=== PATIENT | female | born 2000 | race Hispanic/Latino ===

== ENCOUNTER → 2022-06-02 15:49 | Outpatient (CLI) | payer OTHER, SELFPAY ==
[2022-06-02 16:16] LABS: Add Manual Diff / Slide Review NO; Basophils Absolute Auto 100 /uL (0-100); Basophils Percent Auto 0.6 % (0-2); Eosinophils Absolute Auto 200 /uL (0-450); Eosinophils Percent Auto 1.7 % (2-4); Hematocrit 37.3 % (36-46); Hemoglobin 12.6 g/dL (12.0-16.0); Lymphocytes Absolute Auto 3500 /uL (1100-4500); Mean Corpuscular HGB Conc 33.7 % (30-36); Mean Corpuscular Hemoglobin 29.9 PG (26-34); Mean Corpuscular Volume 88.5 fL (80-100); Monocytes Absolute Auto 900 /uL (0-900); Monocytes Percent Auto 7.2 % (3-14); Neutrophils Absolute Auto 7800 /uL (1500-7000); Neutrophils Percent Auto 62.5 % (50-75); Platelet Count 204 X10^3/uL (150-400); Red Blood Cell Count 4.22 X10^6/uL (4.0-5.2); Red Cell Distribution Width 12.5 % (11.6-14.8); White Blood Cell Count 12.4 X10^3/uL (4.5-11.0)
[2022-06-04 07:18] LABS: RPR Screen Non Reactive (Non Reactive)
[2022-06-04 14:47] LABS: Varicella IgG Antibody 373 index (Immune >165)
[2022-06-05 17:25] LABS: Hepatitis B Surface Antigen NEGATIVE s/c (NEGATIVE); Rubella Antibody IgG 60.3 IU/mL (>15)
[2022-06-05 17:34] LABS: HIV 1 & 2 Ab/Ag 4th Gen Combo NEGATIVE (NEGATIVE); Hep C Virus Ab w/Reflex Quant NEGATIVE s/c (NEGATIVE)
== END ==
PROVIDERS: Referring Provider Obstetrics & Gynecology; Visit Provider Obstetrics & Gynecology
DX: Z34.01 Encounter for supervision of normal first pregnancy, first trimester (principal)
CPT/HCPCS: 36415; 80055; 86787; 86803; 86850; 86900; 86901; 87086; 87389

== ENCOUNTER → 2022-07-03 14:40 | Outpatient (CLI) | payer OTHER, SELFPAY ==
[2022-07-03 19:56] LABS: Urine N gonorrhoeae NOT DETECTED
[2022-07-03 19:59] LABS: Urine Chlamydia NOT DETECTED
== END ==
PROVIDERS: Visit Provider Obstetrics & Gynecology
DX: Z34.02 Encounter for supervision of normal first pregnancy, second trimester (principal); Z3A.15 15 weeks gestation of pregnancy
CPT/HCPCS: 87491; 87591

== ENCOUNTER → 2022-08-02 16:40 | Outpatient (CLI) | payer OTHER, SELFPAY ==
[2022-08-04 19:01] LABS: AFP, Serum 37.4 ng/mL (.); Estriol, Free 1.42 ng/mL (.); Inhibin A, Dimeric 209.15 pg/mL (.); Inhibin A, MoM 1.56 (.); Maternal Ethnicity Other (.); Maternal Weight 220 lbs (.); Number of Fetuses No (.); OSBR Risk 1 IN 10000 (.); Results Report (.); Test Results *Screen Negative* (.); hCG, MoM 1.23 (.); hCG, Serum 25294 mIU/mL (.)
== END ==
PROVIDERS: Referring Provider Obstetrics & Gynecology; Visit Provider Obstetrics & Gynecology
DX: Z34.02 Encounter for supervision of normal first pregnancy, second trimester (principal); Z3A.19 19 weeks gestation of pregnancy
CPT/HCPCS: 36415; 82105; 82677; 84702; 86336

== ENCOUNTER → 2022-08-08 16:14 | Outpatient (CLI) | payer OTHER, SELFPAY ==
--- NOTE | 2022-08-08 16:16 | DI.US.S_ITS ---
PROCEDURE: US OB >= 14 WEEKS FETUS INDICATIONS: anatomy scan OUTSIDE/PRIOR DATING DATA: Last menstrual period (LMP): 03/19/2022. LMP-based estimated date of delivery (KALPANA): 12/24/2022. First dating scan (date and location): Not available. Estimated date of delivery (KALPANA) from first dating scan: Not available. The calculations are made using the working KALPANA of 12/24/2022. TECHNIQUE: Real-time scanning was performed of the fetus, with image documentation and biometric measurements. COMPARISON: [facility], , OB <= 14 WEEKS FETUS, 06/02/2022, 15:26. [facility], , US OB >= 14 WEEKS FETUS, 08/02/2022, 16:28. FINDINGS: General: A single living intrauterine gestation is present. Presentation: Breech. Placenta: Placental position is posterior fundal , without previa. Amniotic fluid index: 17.4 cm, normal range is 5-24 cm. Single deepest vertical pocket is 5.9 cm. heart rate: 137 beats per minute. Maternal cervical canal: 3.8 cm long. Normal lower limit is 2.5 cm. biometrics: Biparietal diameter: 20 weeks 2 days Head circumference: 20 weeks 3 days Abdominal circumference: 20 weeks 5 days Femur length: 20 weeks 4 days Clinically estimated gestational age: 20 weeks 2 days Composite gestational age from present scan: 20 weeks 3 days Estimated weight and percentile: 363 g; 62%. Anatomic survey: Neuro: Ventricles are non-dilated at less than 10 mm. Cisterna magna is normal at 3-11 mm. Cerebellum is normal in size and morphology. Nuchal skin fold: Normal at less than 6 mm between 14-21 weeks gestational age. Face: Nose and lips, facial profile are normal. Spine: No evidence for spina bifida. Heart: 4-chambered heart is present, with normal ventricular outflow tracts. Diaphragm: Diaphragm is intact. Stomach: Left-sided stomach is present. Kidneys: No hydronephrosis. Normal is less than 5 mm in 2nd trimester, less than 7 mm in 3rd trimester. Cord: 3-vessel cord has orthotopic insertion. Bladder: Normal in size. Extremities: All 4 extremities identified. IMPRESSION: 1. A single living intrauterine gestation with appropriate interval growth. 2. Normal anatomic survey. We strive to produce accurate, complete, and clear reports of imaging services. To assist us in improving patient care, this report was composed using standard report templates and voice recognition software. Therefore, it may contain abnormal punctuation, insertions and/or omissions. Occasional wrong-word or sound-alike substitutions may occur. Though we review the report and make efforts to correct it, we do recommend that the report be read carefully in proper context to recognize any text inaccuracies. Dictated by: Vahe Presley M.D. on 08/09/2022 at 15:23 Approved by: Vahe Presley M.D. on 08/09/2022 at 15:28
== END ==
PROVIDERS: Referring Provider Obstetrics & Gynecology; Visit Provider Obstetrics & Gynecology
DX: Z34.02 Encounter for supervision of normal first pregnancy, second trimester (principal); Z3A.20 20 weeks gestation of pregnancy
CPT/HCPCS: 76811

== ENCOUNTER 2022-08-27 23:18 | Outpatient (CLI) | payer OTHER, SELFPAY | END 2022-08-27 23:58 | disposition home or self-care (01) | LOC: LABOR 23:23 → OB 08-28 09:51 | PROVIDERS: PCP Nurse Practitioner; Referring Provider Obstetrics & Gynecology; Visit Provider Obstetrics & Gynecology | DX: O36.8120 Decreased fetal movements, second trimester, not applicable or unspecified (principal); Z3A.23 23 weeks gestation of pregnancy | CPT/HCPCS: 59025; G0378; G0379 ==

== ENCOUNTER → 2022-09-29 13:45 | Outpatient (CLI) | payer OTHER, SELFPAY ==
[2022-09-29 15:38] LABS: Hematocrit 33.8 % (36-46); Hemoglobin 11.4 g/dL (12.0-16.0)
[2022-09-29 15:53] LABS: GTT (PREG) 1 Hour PP 50gm Dose 116 mg/dL (76-139)
== END ==
PROVIDERS: PCP Nurse Practitioner; Referring Provider Obstetrics & Gynecology; Visit Provider Obstetrics & Gynecology
DX: Z34.02 Encounter for supervision of normal first pregnancy, second trimester (principal); Z3A.26 26 weeks gestation of pregnancy
CPT/HCPCS: 36415; 82950; 85014; 85018

== ENCOUNTER → 2022-12-07 13:19 | Outpatient (CLI) | payer OTHER, SELFPAY ==
[2022-12-08 11:27] LABS: Strep Grp B PCR NEG for Grp B Strep
== END ==
PROVIDERS: PCP Nurse Practitioner; Visit Provider Student in an Organized Health Care Education/Training Program
DX: Z34.03 Encounter for supervision of normal first pregnancy, third trimester (principal)
CPT/HCPCS: 87653

== ENCOUNTER 2022-12-17 16:12 | Emergency (ER) | payer OTHER, SELFPAY ==
[2022-12-17 16:17] VITALS: BP 135/83; PULSE 113; RESP 18; TEMP 36.8; O2SAT 98; BMI 43.3
--- NOTE | 2022-12-17 16:41 | ED.NAVMDI ---
HPI - Nausea/Vomiting/Diarrhea <Jean Merchant PA-C - Last Filed: 12/17/22 16:51> General Chief complaint: Nausea/Vomiting/Diarrhea Stated complaint: feels something stuck in her throat Time Seen by Provider: 12/17/22 16:19 Source: patient Mode of arrival: Ambulatory History of Present Illness HPI Narrative: This is a 22-year-old female presents to the emergency department due to 4 days of ?feeling like something is in my throat?. She is not recall any specific episodes that would create such a food bolus in her throat. She is 39 weeks . She denies any significant difficulty breathing or swallowing in his still able to tolerate food and water. States that she did attempt to make herself throw up earlier this morning successfully and now reports some throat irritation. Related Data Home Medications Medication Instructions Recorded Confirmed prenat.vits,virgen,zcj-[id number] 1 tab PO DAILY 05/24/22 12/15/22 Previous Rx's Medication Instructions Recorded breast pump #1 ea 09/27/22 famotidine 10 mg tablet 10 mg PO BID #30 tabs 12/17/22 lidocaine HCl 2 % mucosal solution 1 applic mucous membrane DAILY PRN 12/17/22 (Lidocaine Viscous) pain #100 mL Allergies Allergy/AdvReac Type Severity Reaction Status Date / Time No Known Drug Allergies Allergy Verified 12/17/22 16:27 Review of Systems <Jean Merchant PA-C - Last Filed: 12/17/22 16:51> Review of Systems Narrative: GENERAL: Denies chills, fatigue, malaise, fever, sweats. HEENT: Reports foreign body sensation, Denies sinus pain, ear pain, sore throat, difficulty swallowing, dizziness. RESPIRATORY: Denies dyspnea, cough, wheezing, hemoptysis, sputum. CARDIOVASCULAR: Denies chest pain, palpitations, orthopnea, edema, GASTROINTESTINAL: Denies nausea, vomiting, abdominal pain, diarrhea, constipation, melena. : Denies dysuria, frequency, incontinence, hematuria, urinary retention. MUSCULOSKELETAL: denies weakness, joint pain, or bony pain SKIN: Denies rash, skin lesions, or other NEUROLOGIC: Denies weakness, headache, numbness, change in speech, confusion, seizures, incoordination. PSYCHIATRIC: No concerning psychosocial issues. 12 point review of systems is negative except for those stated above Patient History <Jean Merchant PA-C - Last Filed: 12/17/22 16:51> Medical History (Updated 12/17/22 @ 16:50 by Jean Merchant PA-C) Anxiety (~2020) Ankle pain (~2019) Chlamydia (~2018) Depression (~2020) Ankle fracture, right (~2019) Surgical History (Updated 06/06/22 @ 21:37 by Allyson Juarez) Anesthesia [place] teeth extracted (~05/2020) History of ankle surgery (~11/2019) Family History (Updated 06/06/22 @ 21:38 by Allyson Juarez) Mother Diabetes mellitus Hyperlipidemia Depression Hypertension Sister Ovarian cyst Depression Anxiety Father Family estrangement Grandmother Hypertension Hyperlipidemia Mental health problem Social History marital status: number of children: 0 household members: spouse and family (aktmmwu-[id number]) lives independently: Yes caregiver/support person: No housing: apartment pets and animals: Yes (dogs) education level: high school 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) current occupational exposures/hazards: No special cassy needs: No travel history: over 6 months ago seatbelt use: always helmet use: No water heater temp set < 120 deg: No working smoke detector in home: Yes fire extinguisher in home: Yes carbon monox detector in home: Yes firearms in home: Yes firearms unloaded and locked: Yes do you feel safe at home: Yes Smoking Status: Former smoker Tobacco: How many years used: 3 second hand exposure: No alcohol intake: former (socially when not ) substance use type: does not use during the past year weight has: increased > 10 lbs well-balanced diet: rarely or never daily servings fruits/ve-1 caffeine: Yes (aware of 200mg limit) Type(s) of exercise: none Smoking Status: Former smoker Exam <Jean Merchant PA-C - Last Filed: 12/17/22 16:51> Narrative Exam Narrative: GENERAL: Well-developed patient, in mild distress. HEAD: Atraumatic. Normocephalic. EYES: Pupils equal round and reactive. Extraocular motions intact. No scleral icterus. No injection or drainage. ENT: Nose without bleeding, purulent drainage. Throat without erythema, tonsillar hypertrophy or exudate. Airway patent. NECK: Trachea midline. Non tender CARDIOVASCULAR: Regular rate and rhythm without murmurs, gallops, or rubs. RESPIRATORY: Clear to auscultation. Breath sounds equal bilaterally. No wheezes, rales, or rhonchi. GASTROINTESTINAL: Abdomen soft, non-tender, nondistended. EXTREMITIES: No edema or joint tenderness. BACK: Nontender without deformity or crepitance. No flank tenderness. NEURO: AOx3. SKIN: No rash or erythema of visible areas Initial Vital Signs Initial Vital Signs: Vital Signs Temperature 98.2 F 12/17/22 16:17 Pulse Rate 113 H 12/17/22 16:17 Respiratory Rate 18 12/17/22 16:17 Blood Pressure 135/83 12/17/22 16:17 Pulse Oximetry 98 12/17/22 16:17 Oxygen Delivery Method Room Air 12/17/22 16:17 <Sandra Benitez DO - Last Filed: 12/18/22 07:09> Initial Vital Signs Initial Vital Signs: Vital Signs Temperature 98.2 F 12/17/22 16:17 Pulse Rate 113 H 12/17/22 16:17 Respiratory Rate 18 12/17/22 16:17 Blood Pressure 135/83 12/17/22 16:17 Pulse Oximetry 98 12/17/22 16:17 Oxygen Delivery Method Room Air 12/17/22 16:17 Course <Jean Merchant PA-C - Last Filed: 12/17/22 16:51> Orders Ordered: Discontinued Medications Al Hydrox/Mg Hydrox/Simethicone (Mag Hydrox/Alum/Simeth 30 Ml Udc) 30 ml PO NOW ONE Stop: 12/17/22 16:38 Last Admin: 12/17/22 16:52 Dose: Not Given Documented By: MYESHA Al Hydrox/Mg Hydrox/Simethicone 20 ml/ Lidocaine HCl 15 ml 0 ml PO NOW ONE Stop: 12/17/22 16:48 Last Admin: 12/17/22 16:48 Dose: 35 ml Documented By: MYESHA Famotidine (Famotidine 20 Mg Tablet) 20 mg PO BID LYN Famotidine (Famotidine 20 Mg Tablet) 20 mg PO NOW ONE Stop: 12/17/22 16:43 Last Admin: 12/17/22 16:47 Dose: 20 mg Documented By: MYESHA Lidocaine HCl (Lidocaine Viscous 2% 15 Ml Solution) 15 ml PO NOW ONE Stop: 12/17/22 16:38 Last Admin: 12/17/22 16:52 Dose: Not Given Documented By: MYESHA Vital Signs Vital signs: Vital Signs - 8 hr 12/17/22 16:17 Temperature 98.2 F Pulse Rate 113 H Respiratory Rate 18 Blood Pressure 135/83 Pulse Oximetry 98 Oxygen Delivery Method Room Air <Sandra Benitez DO - Last Filed: 12/18/22 07:09> Orders Ordered: Discontinued Medications Al Hydrox/Mg Hydrox/Simethicone (Mag Hydrox/Alum/Simeth 30 Ml Udc) 30 ml PO NOW ONE Stop: 12/17/22 16:38 Last Admin: 12/17/22 16:52 Dose: Not Given Documented By: MYESHA Al Hydrox/Mg Hydrox/Simethicone 20 ml/ Lidocaine HCl 15 ml 0 ml PO NOW ONE Stop: 12/17/22 16:48 Last Admin: 12/17/22 16:48 Dose: 35 ml Documented By: MYESHA Famotidine (Famotidine 20 Mg Tablet) 20 mg PO BID LYN Famotidine (Famotidine 20 Mg Tablet) 20 mg PO NOW ONE Stop: 12/17/22 16:43 Last Admin: 12/17/22 16:47 Dose: 20 mg Documented By: MYESHA Lidocaine HCl (Lidocaine Viscous 2% 15 Ml Solution) 15 ml PO NOW ONE Stop: 12/17/22 16:38 Last Admin: 12/17/22 16:52 Dose: Not Given Documented By: MYESHA Vital Signs Vital signs: Vital Signs - 8 hr 12/17/22 16:17 Temperature 98.2 F Pulse Rate 113 H Respiratory Rate 18 Blood Pressure 135/83 Pulse Oximetry 98 Oxygen Delivery Method Room Air MDM - Nausea/Vomiting/Diarrhea <Jean Merchant PA-C - Last Filed: 12/17/22 16:51> MDM Narrative Medical decision making narrative: MDM * differential diagnosis includes but not limited to esophageal foreign body, GERD, esophageal or pharyngeal abrasion * Prior records reviewed: Patient has not been here for similar complaints in the past. * My lab interpretation: None obtained * My imgaing interpretation: None obtained * Clinical Decision Rules/Scores evaluated: None * Independent discussions with: None ED Course: This is a 22-year-old female presents to the emergency department due to a reported foreign body sensation. Patient is not recall any events that would lead to a foreign body and is not presenting with any significant discomfort. She was able to swallow foods and swallow water without difficulty. Denies any difficulty breathing or swallowing. Patient is 39 weeks and shared decision-making was utilized and no cervical soft tissue x-ray was ordered. Patient will be given GI cocktail as well as prescribed famotidine and viscous lidocaine. Suspect symptoms may be due to GERD Shared Decision Making: Discussed plan with patient who is comfortable with the plan. Social Considerations: None Disposition: Discharged to home Discharge Plan Departure Patient Disposition: Home Clinical Impression: Sensation of foreign body Activity Restrictions/Additional Instructions: Thank you for coming to the [facility] Emergency Department today. As we discussed I suspect your symptoms maybe due to possible GERD from your . I do not think that you have a large food bolus stuck in your throat. You may also have an abrasion to the back of your throat which may feel like a foreign body. I will prescribe viscous lidocaine which should help numb up the back of your throat as well as a anti acid. I hope you feel better soon. Please follow up with your primary care provider within a week if your symptoms continue. If you do not have a primary care provider please contact the [facility] Resource line at [phone]. They will ask some questions about your medical history and help you get set up with a provider in the community. Prescriptions: New lidocaine HCl [Lidocaine Viscous] 2 % solution 1 applic mucous membrane DAILY PRN (Reason: pain) Qty: 100 0RF famotidine 10 mg tablet 10 mg PO BID Qty: 30 0RF No Action prenat.vits,virgen,hfs-ihng-kovvr Tablet 1 tab PO DAILY (DME) breast pump Device See Rx Instructions .Route Qty: 1 0RF Rx Instructions: Double electric pump with supplies Referrals: Chayo Brand ARNP [Primary Care Provider] - Stand Alone Forms: Patient Portal/API ED Sign-out <Sandra Benitez DO - Last Filed: 12/18/22 07:09> Cosign ED Attending Alexander Attestation: I was immediately available in the department for consultation. Documentation has been reviewed.
[2022-12-17] MEDS: FAMOTIDINE 20 MG TABLET PO (16:47)
[2022-12-17] MEDS: MAG HYDROX/ALUMINUM/SIMETH SUS 20 ML, LIDOCAINE VISCOUS 2% 15 ML PO (16:48)
[2022-12-17 16:59] VITALS: BP 126/65; PULSE 106; RESP 18; O2SAT 99
== END 2022-12-17 17:02 | disposition home or self-care (01) ==
PROVIDERS: Emergency Provider Physician Assistant Medical; PCP Nurse Practitioner
DX: R09.A0 Foreign body sensation, unspecified (principal)
CPT/HCPCS: 99283; A9270

== ENCOUNTER 2022-12-21 11:35 | Inpatient (IN) | payer OTHER, SELFPAY ==
--- NOTE | 2022-12-21 14:27 | P.HPOB_ITS ---
OB HPI Date/Time Date of admission: 12/21/22 Date Patient Seen: 12/21/22 Time Patient Seen: 13:15 History of Present Condition Chief complaint: nst KALPANA Calculator 2 Estimated Delivery Date Method Current WG Current Estimate 12/24/22 LMP (Certain) 39w 5d Other Estimates 12/28/22 Ultrasound #1 39w 1d Estimated Gestational Age (weeks): 39+4 : 1 Para: 0 Narrative: Patient is a 22-year-old 1 para 0 who presented for a routine visit in the office today. She was scheduled for a growth ultrasound. At that time she was found to have an TACOS of 4 cm. Placenta very calcified. She was sent to labor and delivery for a nonstress test. Initially the yxej-bf-bmiq variability was minimal for an extended period of time. It then picked up and the nonstress test was reactive. A decision was made to keep patient and induced for oligohydramnios. care: good care, initiated at week # (10), number of visits (9) and pounds weight gain (18) Dating criteria OB: LMP confirmed by 1st trimester US Ultrasounds: normal 1st trimester US, normal mid trimester US and abnormal US findings Abnormal ultrasound findings: December 21, 2022: TACOS for cm, very calcified placenta, estimated weight 8 lb Obstetrical complications: other (Oligohydramnios) Medical complications OB: none Indications Indication for induction OB: oligohydramnios Preadmission Labs Last OB Lab Results: 2 Blood Type O Positive 12/21/22 14:05 Antibody Screen Negative 12/21/22 14:05 Hematocrit 34.6 % (36-46) L 12/21/22 14:05 Hemoglobin 11.5 g/dL (12.0-16.0) L 12/21/22 14:05 Hepatitis B Surface Antigen Negative s/c (NEGATIVE) 06/02/22 15 :53 Hepatitis C Antibody Negative s/c (NEGATIVE) 06/02/22 15:53 Rubella Antibody 60.3 IU/mL (>15) 06/02/22 15:53 Varicella-Zoster IgG Antibody 373 index (Immune >165) 06/02/22 15:53 Glucose 1 Hour 116 mg/dL (76-139) 09/29/22 14:52 Group B Streptococcus (PCR) Neg for grp b strep 12/07/22 13:19 -: Chlamydia screen: negative, Gonorrhea screen: negative and Urine: negative Genetic Screens: Quad screen: Normal External Labs -: Urine: negative Evaluation Evaluation Baseline heart rate: 135 Variability: Minimal (3-5) (for 60min, then moderate) monitor accelerations: Present Monitor Decelerations: Absent Dilation (cm): 0 Effacement (%): 80 station: -1 Position of cervix: posterior Consistency: medium [facility] Medical History (Updated 12/17/22 @ 16:50 by Jean Merchant PA-C) Anxiety (~2020) Ankle pain (~2019) Chlamydia (~2018) Depression (~2020) Ankle fracture, right (~2019) Surgical History (Updated 06/06/22 @ 21:37 by Allyson Juarez) Anesthesia [place] teeth extracted (~05/2020) History of ankle surgery (~11/2019) Family History (Updated 06/06/22 @ 21:38 by Allyson Juarez) Mother Diabetes mellitus Hyperlipidemia Depression Hypertension Sister Ovarian cyst Depression Anxiety Father Family estrangement Grandmother Hypertension Hyperlipidemia Mental health problem Social History marital status: number of children: 0 household members: spouse and family (dobuefi-od-iyu) lives independently: Yes caregiver/support person: No housing: apartment pets and animals: Yes (dogs) education level: high school 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) current occupational exposures/hazards: No special cassy needs: No travel history: over 6 months ago seatbelt use: always helmet use: No water heater temp set < 120 deg: No working smoke detector in home: Yes fire extinguisher in home: Yes carbon monox detector in home: Yes firearms in home: Yes firearms unloaded and locked: Yes do you feel safe at home: Yes Smoking Status: Former smoker Tobacco: How many years used: 3 second hand exposure: No alcohol intake: former (socially when not ) substance use type: does not use during the past year weight has: increased > 10 lbs well-balanced diet: rarely or never daily servings fruits/ve-1 caffeine: Yes (aware of 200mg limit) Type(s) of exercise: none Meds Home Medications and Allergies Home Medications Medication Instructions Recorded Confirmed Type prenat.vits,virgen,lca-ojku-qwjhw 1 tab PO DAILY 05/24/22 12/21/22 History breast pump #1 ea 09/27/22 12/21/22 Rx Allergies Allergy/AdvReac Type Severity Reaction Status Date / Time No Known Drug Allergies Allergy Verified 12/21/22 15:06 OB Exam Narrative Exam Narrative: Generally: Patient is sitting up in bed, no acute distress Lungs: Clear to auscultation bilaterally Cardiovascular: Regular rate and rhythm Fundal height: 39 cm Estimated weight: 8 lb Extremities: 1+ edema, 1+ DTRs Objective Labs 12/21/22 14:05 Assessment and Plan Assessment and Plan Assessment and Plan narrative: Assessment: 22-year-old 1 para 0 at 39-,4/7 weeks gestation with oligohydramnios and grade 3 placenta Prolonged period of minimal mtla-po-tftm variability, followed by a reactive nonstress test Plan: Cervidil Possibly Pitocin in the morning Time Spent with Patient Total time spent with greater than 50% in coordination of care (as documented) at patient's floor/unit and/or counseling patient:: 15-24 minutes
[2022-12-21 14:28] LABS: Add Manual Diff / Slide Review NO; Basophils Absolute Auto 0 /uL (0-100); Basophils Percent Auto 0.5 % (0-2); Eosinophils Absolute Auto 100 /uL (0-450); Eosinophils Percent Auto 1.6 % (2-4); Hematocrit 34.6 % (36-46); Hemoglobin 11.5 g/dL (12.0-16.0); Lymphocytes Absolute Auto 2100 /uL (1100-4500); Lymphocytes Percent Auto 23.2 % (25-40); Mean Corpuscular HGB Conc 33.3 % (30-36); Mean Corpuscular Hemoglobin 29.2 PG (26-34); Mean Corpuscular Volume 87.7 fL (80-100); Monocytes Absolute Auto 800 /uL (0-900); Monocytes Percent Auto 8.6 % (3-14); Neutrophils Absolute Auto 6100 /uL (1500-7000); Neutrophils Percent Auto 66.1 % (50-75); Platelet Count 175 X10^3/uL (150-400); Red Blood Cell Count 3.94 X10^6/uL (4.0-5.2); Red Cell Distribution Width 14.5 % (11.6-14.8); White Blood Cell Count 9.2 X10^3/uL (4.5-11.0)
[2022-12-21 15:08] VITALS: BP 109/71
[2022-12-21] MEDS: DINOPROSTONE VAG (CERVIDIL) 10 MG VAG (16:21)
[2022-12-22] MEDS: ZOLPIDEM 5 MG TABLET PO (00:45)
[2022-12-22] MEDS: LACTATED RINGERS 1,000 ML 100 ML IV ×2 (06:06→16:07)
[2022-12-22] MEDS: OXYTOCIN PREMIX 30 UNIT/500 ML PLAST..BAG IV (06:07)
--- NOTE | 2022-12-22 10:01 | PM.OBPNLAB ---
Date/Time Date Patient Seen: 12/22/22 Time Patient Seen: 10:01 Pain Control Pain control: tolerating well Pelvic Exam Dilation (cm): 1 Effacement (%): 85 station: -1 Amniotic membrane status: Ruptured (some leak in shower) Contractions Pitocin rate (mU/min): 4 Contraction frequency (min): 2 Contraction duration (min): 1 Contraction pattern: Irregular Contraction intensity: Mild Status status: Category l Heart Rate Baseline: 140 Monitor Accelerations: Present Monitor Decelerations: Absent Monitor Variability: Moderate Assessment and Plan Assessment: induction ongoing Comments: Assessment: 22-year-old 1 para 0 at 39-,5/7 weeks gestation for induction of labor due to oligohydramnios and grade 3 placenta AmniSure positive after small leak in the shower On Pitocin Plan: Epidural as needed Limit vaginal exams Expected management to spontaneous vaginal delivery
--- NOTE | 2022-12-22 14:10 | PM.OBPNLAB ---
Date/Time Date Patient Seen: 12/22/22 Time Patient Seen: 14:10 Pain Control Pain control: tolerating well Comments: Bouncing on the ball Thought she might have leaked a little more fluid the last time she went to the bathroom, but nothing on the pad Pelvic Exam Effacement (%): 85 station: -1 Amniotic membrane status: Ruptured (some leak in shower) Comments: Deferred vaginal exam Contractions Contractions on admission: none Monitor mode: External Pitocin rate (mU/min): 7 Contraction frequency (min): 4 Contraction duration (min): 1 Contraction pattern: Regular Contraction intensity: Mild Status status: Category l Heart Rate Baseline: 140 Monitor Accelerations: Present Monitor Decelerations: Absent Monitor Variability: Moderate (Periods of minimal variability) Assessment and Plan Assessment: induction ongoing Plan: continuous present management
--- NOTE | 2022-12-22 18:10 | PM.OBPNLAB ---
Date/Time Date Patient Seen: 12/22/22 Time Patient Seen: 17:45 Pain Control Pain control: tolerating well Pelvic Exam Dilation (cm): 1 Effacement (%): 85 station: -1 Amniotic membrane status: Ruptured (some leak in shower) Contractions Monitor mode: External Pitocin rate (mU/min): 17 Contraction frequency (min): 4 Contraction pattern: Regular Contraction intensity: Mild Status status: Category l Heart Rate Baseline: 140 Monitor Accelerations: Present Monitor Decelerations: Absent Monitor Variability: Moderate Assessment and Plan Assessment: induction ongoing Comments: 22yo at 39+5wks undergoing IOL for oligo. She has been on pitocin since this morning, with possible SROM (via + amnisure) around 10am. -stratton bulb placed with 60cc of NS -continue to titrate pitocin for effect
--- NOTE | 2022-12-23 | PATH_ITS ---
[facility] Accession Number: [id number] No. of containers..01 Tissue . 01 Material submitted: . placenta - PLACENTA . 01 Diagnosis: A. Placenta, 39 Weeks and 5/7 Days, Delivery: Intact darling placenta (534 grams, less than 25 percentile), with villi consistent with third trimester gestational age, with accelerated maturation. Umbilical cord, centrally inserted; no evidence of funisitis or thrombi. membranes, marginally inserted with few pigment/meconium-laden macrophages, amnion nodosum, and laminar decidular necrosis, focally prominent; no evidence of chorioamnionitis. Chorionic villi with 3 subchorionic thrombi (1-1.5 cm, about 10% of placental volume) and one small non-occlusive blood clot in stem villous vessel; no evidence of villitis or abruption. [facility] 01/05/2023 1737 Local . 01 Electronically signed: . Kathrine Tarango MD, Pathologist NPI- [id number] . 01 Gross description: . The specimen is received in formalin labeled with the patient's name, , and placenta, consists of a discoid darling placenta with a trimmed weight of 534 grams and measuring 19.5 x 17.8 x 1.5 cm with no accessory lobes identified. . The membranes are welsh and translucent with small areas of welsh thickening occupying less than 10% of the membrane surface. They insert at the margin and have a point of rupture 4.3 cm from the nearest placental disc edge. . The cord measures 41.7 cm in length and averages 1.4 cm in diameter with thickened, gelatinous areas occupying approximately 40% of the cord surface. The cord has a leftward coil and an index of approximately 2 twists per 5 cm. The cord inserts centrally and sectioning reveals unremarkable trivascular architecture with no knots or lesions identified. . The surface is blue-kruger with normal arborizing vasculature and multiple pale welsh areas of discoloration located centrally occupying approximately 20% of the surface with no additional lesions identified. . The maternal surface is apparently complete with no adherent hemorrhage or discoloration identified. Sectioning reveals a red, spongy cut surface with pale welsh areas of discoloration associated with the aforementioned surface discoloration and occupying less than 10% of the cut surface. . [employer] sections are submitted as follows: A1: Membrane roll and placental end of cord. A2: Membrane roll and end of cord. A3-A4: Full thickness cut surface discoloration. A5-a6: Full thickness surface discoloration. A7-A9: Central full thickness unremarkable sections. ([id number]) /MRV 12/26/2022 1049 Local . 01 Pathologist provided ICD-10: O63.9 . 01 CPT . 778689 Specimen Comment: A courtesy copy of this report has been sent to [facility] Pathology Performed at: 01 [facility] Cytology [address] [place] [address], [place], [place] [id number] MD Martín Nieves MD Phone: [phone]
[2022-12-23] MEDS: miSOPROStoL 25 MCG TABLET PO (06:13)
--- NOTE | 2022-12-23 08:49 | PM.OBPNLAB ---
Date/Time Date Patient Seen: 12/23/22 Time Patient Seen: 08:49 Pain Control Pain control: tolerating well Pelvic Exam Effacement (%): 85 Amniotic membrane status: Ruptured (some leak in shower) Comments: Bedside sono: vertex, unable to measure SDP without cord (which was the only pocket of fluid) Contractions Monitor mode: External Contraction frequency (min): 4 Contraction pattern: Regular Contraction intensity: Mild Status status: Category l Heart Rate Baseline: 130 Monitor Accelerations: Present Monitor Decelerations: Absent Monitor Variability: Moderate Assessment and Plan Plan: Comments: 22yo at 39+6wks undergoing IOL for oligo. She underwent cervidil overnight on night one, then pitocin x24hrs (with SROM yesterday at 10am), with stratton bulb placement and cytotec x1. The stratton bulb never came out, so was removed this morning at 5am. Given that she is ruptured >18hrs and has been on pitocin for 24hrs, advised patient to consider proceeding with at this time. Pt agrees. consent It was explained to the patient that a section is a surgery to deliver the baby through an incision in the abdominal wall and uterus.? All procedures can be associated with risk and unforeseen complications, which can be immediate or delayed.? Risks and complications of section include, but are not limited to:? infection of the uterus, pelvic organs, or skin; inadvertent injury to internal organs such as the bowel, bladder, or possibly even the baby; blood loss, transfusion, and/or life-threatening hemorrhage requiring hysterectomy; blood clots in the legs, pelvic organs, or lungs; adverse reaction to medications or anesthesia during surgery; development of placenta accreta spectrum in a subsequent ; and increased risk of section in a subsequent . -will proceed with delivery once all teams ready
[2022-12-23] MEDS: LACTATED RINGERS 1,000 ML 100 ML IV (09:30)
[2022-12-23] MEDS: CITRIC ACID/SODIUM CITRATE 15 ML SOLUTION 30 ML PO (10:17)
[2022-12-23] MEDS: CEFAZOLIN 2 GM/100 ML PREMIX 100 ML IV (11:05)
[2022-12-23] MEDS: AZITHROMYCIN 500 MG in DEXTROSE 5% IN WATER 250 ML 250 MG IV (11:10)
--- NOTE | 2022-12-23 11:25 | SUR.OPER ---
Supine on Padded OR bed, head on pillow, safety belt at thigh, arms secured on padded arm boards at <90 degrees abduction. Bump under right buttock. Legs uncrossed with pillow under knees, gel pad to heels, tape over blanket to lower legs.
[2022-12-23] MEDS: TRANEXAMIC ACID 1,000 MG in SODIUM CHLORIDE 0.9% 100 ML 200 MG IV (11:35)
--- NOTE | 2022-12-23 11:54 | SUR.OPER ---
Viable baby girl delivered at 1124. Placenta delivered. Placenta sent to pathology and 2 cord blood tubes given to L&D RN.
[2022-12-23 12:14] VITALS: BP 122/81; PULSE 104; RESP 16; TEMP 36.3; O2SAT 98
[2022-12-23 12:19] VITALS: BP 117/73; PULSE 107; RESP 22; O2SAT 97
[2022-12-23 12:24] VITALS: BP 132/92; PULSE 105; RESP 22; O2SAT 97
[2022-12-23 12:29] VITALS: BP 122/83; PULSE 107; RESP 19; O2SAT 98
[2022-12-23 12:36] VITALS: BP 136/83; PULSE 96; RESP 20; TEMP 36.4; O2SAT 98
[2022-12-23] MEDS: ONDANSETRON 4 MG/2 ML INJ IV (13:26)
--- NOTE | 2022-12-23 14:28 | P.OP_ITS ---
Operative Date/Time/Diagnoses Date of procedure: 12/23/22 Time of procedure: 11:24 Pre-op diagnosis: Grady intrauterine gestation at 39+6wks Failed induction of labor Oligohydramnios Post-op diagnosis: same (delivered via primary low transverse section) Procedure & Clinicians Procedure: Primary low transverse section Same procedure as scheduled: Yes Indications: 22yo at 39+6weeks EGA w/ PNC c/b oligohydramnios, who was admitted on 12/21/22 for induction of labor. Patient remain unchanged at 2/80/-2 after 24 h ours of pitocin augmentation and ruptured for approximately 18 hours. She was counseled and consented for PLTCS for failed induction of labor. Surgeon: Odalys Pham Elevator Repairer Apprentice: Eder Barajas Anesthesia Type: Spinal Operative Notes Findings: Normal-appearing uterus and bilateral fallopian tubes and ovaries. Clear fluid noted with delivery. Delivery productive of a viable female in cephalic presentation with APGARS 9/9 and weighing 3945g. Placenta notable for velamentous cord insertion. Closure Type: primary Specimen(s): placenta Intraoperative meds administered: Duramorph, Methergine, Pitocin and Tranexamic acid Applied: Catheter Estimated Blood Loss (mL): 900 Blood products transfused: none Procedure in detail: The risks, benefits, indications and alternatives of the procedure were reviewed with the patient and informed consent was obtained. The patient was taken to the operating room where spinal anesthesia was obtained without difficulty and was found to be adequate. She was then prepped and draped in the normal, sterile fashion in the dorsal supine position with a leftward tilt. A Pfannenstiel skin incision was then made with the scalpel and carried through to the underlying layer of fascia. The fascia was incised in the midline and the incision extended laterally with the Soria scissors. The superior aspect of the incision was grasped, tented up with Awa clamps and the rectus muscles were dissected off bluntly, aided with Soria scissors. The rectus muscles were then at the midline. The peritoneum was identified, and entered digitally. The peritoneal incision was then extended horizontally, superiorly and inferiorly, with good visualization of the bladder. The bladder blade was then inserted. The lower uterine segment was incised in a transverse fashion with the scalpel. The uterine incision was then extended manually in a cephalad/caudad direction. The bladder blade was then removed. The ?s head delivered atraumatically through the hysterotomy without difficulty, followed by the body.? The cord was doubly clamped and cut after a 60sec delay with the infant handed off to the waiting pediatrics team. The placenta was then removed spontaneously with gentle traction on the umbilical cord. The uterus was then exteriorized and cleared of all clots and debris. The uterine incision was repaired with 0-vicryl in a running, locked fashion. A second layer using 0-vicryl was then used to imbricate the hysterotomy. Several additional figure of eight sutures were placed along the hysterotomy to aid in hemostasis. During repair, uterine tone was poor, thus the above uterotonics were administered. The uterus was returned to the abdomen and the hysterotomy was again noted to be hemostatic. The paracolic gutters were cleared of all clot and debris. The fascia was reapproximated with 0-vicryl in a running fashion. The subcutaneous layer was closed with 3-0 vicryl in a running, two-layer fashion. The skin was closed with 4-0 monocryl in a subcuticular fashion. The incision was then dressed with steri-strips and a pressure dressing was applied. At the completion of the case, a Crede maneuver was performed with good uterine tone and minimal vaginal bleeding noted.? The patient tolerated the procedure well. Sponge, lap and needle counts were correct x3. The patient was taken to the recovery room in stable condition. The patient is a candidate for a trial of labor after . Complications: none Post-operative Condition: stable Disposition: other Aftercare: routine postop
[2022-12-23] MEDS: LANOLIN OINT 7 GM 1 APPLIC TOP (15:03)
[2022-12-23] MEDS: ACETAMINOPHEN 325 MG TABLET 650 MG PO ×2 (15:04→21:27)
[2022-12-23] MEDS: KETOROLAC 30 MG/ML VIAL IV ×2 (17:54→23:59)
[2022-12-24] MEDS: ACETAMINOPHEN 325 MG TABLET 650 MG PO ×4 (03:24→22:08)
[2022-12-24] MEDS: OXYCODONE IR 5 MG TABLET PO ×3 (04:21→16:36)
[2022-12-24] MEDS: KETOROLAC 30 MG/ML VIAL IV (05:55)
[2022-12-24 06:26] LABS: Add Manual Diff / Slide Review NO; Basophils Absolute Auto 0 /uL (0-100); Basophils Percent Auto 0.3 % (0-2); Eosinophils Absolute Auto 100 /uL (0-450); Hematocrit 26.9 % (36-46); Hemoglobin 9.1 g/dL (12.0-16.0); Lymphocytes Absolute Auto 1200 /uL (1100-4500); Lymphocytes Percent Auto 12.8 % (25-40); Mean Corpuscular HGB Conc 33.7 % (30-36); Mean Corpuscular Hemoglobin 29.6 PG (26-34); Mean Corpuscular Volume 87.8 fL (80-100); Monocytes Absolute Auto 700 /uL (0-900); Monocytes Percent Auto 7.1 % (3-14); Neutrophils Absolute Auto 7400 /uL (1500-7000); Neutrophils Percent Auto 78.8 % (50-75); Platelet Count 131 X10^3/uL (150-400); Red Blood Cell Count 3.06 X10^6/uL (4.0-5.2); Red Cell Distribution Width 14.6 % (11.6-14.8); White Blood Cell Count 9.4 X10^3/uL (4.5-11.0)
[2022-12-24] MEDS: PRENATAL VIT,CALC/IRON/FOLIC 1 TABLET 1 TAB PO (09:23)
[2022-12-24] MEDS: DOCUSATE 100 MG CAPSULE PO (09:23)
[2022-12-24] MEDS: FERROUS SULFATE 325 MG TABLET PO (09:23)
--- NOTE | 2022-12-24 09:33 | P.PNOB_ITS ---
Subjective - OB Subjective Patient comments: no complaints, pain well controlled and tolerating diet baby status: doing well feeding status: exclusively breast feeding Narrative: 22yo [id number] POD#1 s/p PLTCS for failed IOL. She is doing well, pain controlled. Does report a slight headache with getting up and sitting up. Denies dizziness/lightheadedness. Lochia is similar to a period. Tolerating regular diet. Voiding spontaneously. Date Patient Seen: 12/24/22 Time Patient Seen: 09:34 Exam Vital Signs (past 8 hours): Oxygen Delivery Method Room Air Oxygen Flow Rate 97 vitals reviewed in OBIX, within normal parameters Const General: cooperative, healthy appearing and No acute distress Resp Effort & Inspection: normal respiratory effort Other: fundus firm, nontender, U-2 Skin Wounds: wounds noted (Pfannenstiel incision clean/dry/intact with steri-strips in place) Extrem General: normal to inspection, no pedal edema and no calf tenderness Psych Mood: congruent mood Affect: normal affect Objective Labs 12/24/22 06:15 Labs: Laboratory Results - last 24 hr 12/24/22 06:15 WBC 9.4 RBC 3.06 L Hgb 9.1 L Hct 26.9 L MCV 87.8 MCH 29.6 MCHC 33.7 RDW 14.6 Plt Count 131 L Neut % (Auto) 78.8 H Lymph % (Auto) 12.8 L Guthrie % (Auto) 7.1 Eos % (Auto) 1.0 L Baso % (Auto) 0.3 Neut # (Auto) 7400 H Lymph # (Auto) 1200 Guthrie # (Auto) 700 Eos # (Auto) 100 Baso # (Auto) 0 Assessment & Plan Assessment and Plan (1) delivery delivered: Start date: 12/23/22 Status: Acute (2) Anemia due to blood loss, acute: Start date: 12/23/22 Status: Acute Plan day: 1 plan OB: routine postop care Comments: 22yo [id number] POD#1 s/p PLTCS for failed IOL, doing well in the period. -continue ibuprofen, tylenol, oxy PRN for pain -monitor her headache today; suspect it is tension headache, but can't r/o spinal headache at this time -PO iron supplementation for anemia; monitor for signs of symptomatic anemia -if mom and baby do well, anticipate d/c home tomorrow Time Spent With Patient Time: Total time spent is greater than 50% in coordination of care (as documented) at patient's floor/unit and/or counseling patient: Time with patient: less than 15 minutes
[2022-12-24] MEDS: IBUPROFEN 600 MG TABLET PO ×3 (12:03→22:09)
[2022-12-24] MEDS: fentaNYL 100 MCG/2 ML INJ 50 MCG IV ×2 (15:14→19:34)
[2022-12-24] MEDS: CYCLOBENZAPRINE 10 MG TABLET 5 MG PO ×2 (16:37→22:09)
[2022-12-25] MEDS: ACETAMINOPHEN 325 MG TABLET 650 MG PO ×2 (05:12→18:11)
[2022-12-25] MEDS: IBUPROFEN 600 MG TABLET PO ×3 (05:12→18:10)
[2022-12-25] MEDS: OXYCODONE IR 5 MG TABLET PO (08:44)
[2022-12-25] MEDS: FERROUS SULFATE 325 MG TABLET PO (08:44)
[2022-12-25] MEDS: PRENATAL VIT,CALC/IRON/FOLIC 1 TABLET 1 TAB PO (08:44)
[2022-12-25] MEDS: DOCUSATE 100 MG CAPSULE PO (08:44)
[2022-12-25] MEDS: CYCLOBENZAPRINE 10 MG TABLET 5 MG PO (08:45)
[2022-12-25] MEDS: BUTALB/APAP/CAFFEINE 50/325/40 TABLET 1 EACH PO (11:24)
--- NOTE | 2022-12-25 14:17 | SUR.HOLD ---
Pt arrived to preop via wheelchair. Pt is here for a blood patch with Dr Casey and Dr Green.
[2022-12-25 14:21] VITALS: BMI 43.0
[2022-12-25 14:30] VITALS: BP 105/67; PULSE 98; RESP 26; TEMP 36.3; O2SAT 97
--- NOTE | 2022-12-25 14:31 | SUR.HOLD ---
1427 - Time out completed for blood patch.
--- NOTE | 2022-12-25 14:50 | SUR.HOLD ---
1435 - LAC 18g IV inserted under sterile process. Total 20ml blood drawn under sterile process 1444 - Total 15ml blood inserted by Dr Green. Blood patch complete. Pt tolerated procedure. VSS.
--- NOTE | 2022-12-25 15:17 | PM.OBDS.1 ---
Discharge Providers Provider Date of admission: 12/21/22 11:35 Discharge Date: 12/25/22 Primary care physician: NIURKA Dinh Consults: 12/21/22 14:06 Consult to Anesthesiology Urgent Comment: Consulting Provider: Anesthesiologist Reason for consultation: Epidural 12/23/22 12:12 Consult to Automotive Fleet Supervisor Routine Comment: Discharge provider: Odalys Pham DO Summary Hospital Course Date Patient Seen: 12/25/22 Time Patient Seen: 11:05 Diagnoses: Term at 39 weeks EGA Oligohydramnios Failed induction of labor delivery Hospital Course: 22yo [id number] admitted at 39+5wks for induction of labor due to newly diagnosed oligohydramnios. She did not progress into active labor despite adequate cervical ripening and pitocin augmentation, thus she underwent primary low transverse delivery. Her delivery was uncomplicated, and productive of a viable female infant. Her course was notable for anemia and spinal headache. She underwent a blood patch procedure, with improvement in her symptoms. On post-op day #2, she was ambulating, tolerating regular diet, voiding spontaneously with minimal lochia. Her pain was well controlled with oral medications, thus she was discharged to home on post-op day #2. Peripartum Data Infant Delivery Method: Section Procedures: Induction of labor External monitoring delivery Spinal anesthesia Blood patch complications: spinal headache and uterine atony Discharge Diagnosis (1) delivery delivered: Status: Acute (2) Anemia due to blood loss, acute: Status: Acute Status at Discharge Cognitive/behavioral status at discharge: oriented Functional status at discharge: independent ambulation Overall status at discharge: patient is progressing back to baseline Time Spent with Patient Time attestation: Total time spent providing and/or coordinating discharge services: Time spent: Less than 30 minutes Objective Labs 12/24/22 06:15 Exam Vital Signs (past 8 hours): - 12/25/22 14:30 Temperature 97.3 F L Pulse Rate 98 H Respiratory Rate 26 H Blood Pressure 105/67 Pulse Oximetry 97 Oxygen Delivery Method Room Air Oxygen Delivery Method Room Air Oxygen Flow Rate 97 Const General: cooperative, healthy appearing and No acute distress Resp Effort & Inspection: normal respiratory effort Other: fundus firm, nontender, U-3cm Skin General: no rashes or lesions noted Other: Pfannenstiel skin incision clean/dry/intact with steri-strips in place Extrem General: normal to inspection, no pedal edema and no calf tenderness Psych Mood: congruent mood Affect: normal affect Discharge Plan Discharge Plan Patient Disposition: Home Provider Discharge Comment: Continue ibuprofen 600mg every 6hrs, and acetaminophen 650mg every 6hrs as needed for pain. Use oxycodone 4mg every 4hrs as needed for severe pain. Discharge orders & Medications Prescriptions: New oxycodone 5 mg tablet 5 mg PO Q4H PRN (Reason: pain) Qty: 10 0RF Continued prenat.vits,virgen,[id number] Tablet 1 tab PO DAILY No Action (DME) breast pump Device See Rx Instructions .Route Qty: 1 0RF Rx Instructions: Double electric pump with supplies Follow up/Referrals: Odalys Pham DO [Physician] - (You have a 2 [address] wound check with Dr Pham on 01/08 at 2pm and a [address] follow up with Dr Gonzales on 01/30 at 2pm. ) Activity Restrictions/Additional Instructions: Avoid lifting anything greater than 20lbs. for [address] anything in the vagina for 6 weeks (including tampons, intercourse, etc.) Diet/Activity/Treatments Diet: Diet as Tolerated Activity: ?Gradually resume your daily activities at home. ?Allow time for rest periods during the day and nap while your sleeps. ?Slow to moderate walking is safe. Increase your activity as your body tolerates. Skin/Wound/Dressing Care Report to your healthcare provider any signs of infection, such as:: chills, fever, increased pain, unusual drainage and unusual redness Dressing: Keep your incision clean and pat dry after showering. Do not apply soap directly to the incision. The steri-strips should fall off after 7 days; if they don't, you may remove them after 7 days. Visit Report/Discharge Packet Instructions: DI for Stand Alone Forms: Discharge: Care Discharge Data Primary Care Provider: Chayo Brand
== END 2022-12-25 20:00 | disposition home or self-care (01) | DRG 787 ==
PROVIDERS: Anesthesiology; Student in an Organized Health Care Education/Training Program; Admitting Provider Obstetrics & Gynecology; PCP Nurse Practitioner; Referring Provider Obstetrics & Gynecology; Visit Provider Obstetrics & Gynecology
PROC: 10D00Z1 Extraction of Products of Conception, Low, Open Approach (ICD-10-PCS; CPT 59514; principal; 2022-12-23 11:00)
PROC: 3E0R3GC Introduction of Other Therapeutic Substance into Spinal Canal, Percutaneous Approach (ICD-10-PCS; CPT 62273; principal; 2022-12-25 14:00)
DX: O61.0 Failed medical induction of labor (principal); D62 Acute posthemorrhagic anemia; O41.03X0 Oligohydramnios, third trimester, not applicable or unspecified; T88.59XA Other complications of anesthesia, initial encounter; G44.40 Drug-induced headache, not elsewhere classified, not intractable; Z3A.39 39 weeks gestation of pregnancy; Z37.0 Single live birth; O43.893 Other placental disorders, third trimester
CPT/HCPCS: 36415; 59050; 59200; 59510; 59514; 62273; 76815; 85025; 86850; 86900; 86901; G0379; J0690; J1885; J2274; J2405; J2590; J3010

== ENCOUNTER 2023-05-08 20:20 | Inpatient (IN) | payer OTHER, SELFPAY ==
[2023-05-08 20:28] VITALS: BP 127/91; PULSE 84; RESP 18; TEMP 36.9; O2SAT 97; BMI 38.7
--- NOTE | 2023-05-08 20:36 | DI.US.S_ITS ---
PROCEDURE: US ABDOMEN LIMITED INDICATIONS: RUQ ? gallstone TECHNIQUE: Real-time scanning was performed of the abdominal and retroperitoneal organs, with image documentation. COMPARISON: None. FINDINGS: Liver: Liver is normal in size . Mildly increased liver parenchymal echotexture is seen. No discrete hepatic lesion. Gallbladder: Multiple stones are seen in dependent portion of gallbladder lumen. No gallbladder wall thickening or pericholecystic fluid. No sonographic Jones's sign. Biliary ducts: Intrahepatic bile ducts are non-dilated. Extrahepatic bile duct caliber measures 6.9 mm. Normal is 6-7 mm or less in diameter, or 10 mm or less post-cholecystectomy. Pancreas: Visualized portions of the pancreas are sonographically normal. Miscellaneous: No free abdominal fluid. IMPRESSION: 1. Cholelithiasis without sonographic evidence of acute cholecystitis. No biliary ductal dilatation. 2. Mild hepatic steatosis. No discrete hepatic lesion. Dictated by: Austen Hoffman M.D. on 05/08/2023 at 22:19 Approved by: Austen Hoffman M.D. on 05/08/2023 at 22:20
[2023-05-08 21:20] LABS: Add Manual Diff / Slide Review NO; Basophils Absolute Auto 0 /uL (0-100); Basophils Percent Auto 0.5 % (0-2); Eosinophils Absolute Auto 100 /uL (0-450); Eosinophils Percent Auto 1.3 % (2-4); Hematocrit 40.5 % (36-46); Hemoglobin 13.4 g/dL (12.0-16.0); Lymphocytes Absolute Auto 1500 /uL (1100-4500); Mean Corpuscular Hemoglobin 28.5 PG (26-34); Mean Corpuscular Volume 86.3 fL (80-100); Monocytes Absolute Auto 500 /uL (0-900); Monocytes Percent Auto 7.6 % (3-14); Neutrophils Absolute Auto 4500 /uL (1500-7000); Neutrophils Percent Auto 67.6 % (50-75); Platelet Count 201 X10^3/uL (150-400); Red Cell Distribution Width 14.9 % (11.6-14.8); White Blood Cell Count 6.7 X10^3/uL (4.5-11.0)
[2023-05-08 21:32] LABS: Alanine Aminotransferase 566 IU/L (<35); Albumin 4.2 g/dL (3.5-5.0); Albumin Globulin Ratio 1.2 (1.0-2.8); Alkaline Phosphatase 116 U/L (38-126); Aspartate Aminotransferase 611 IU/L (14-36); Bilirubin Total 1.9 mg/dL (0.2-1.3); Blood Urea Nitrogen 11 mg/dL (7-17); Carbon Dioxide 31 mmol/L (22-32); Chloride 105 mmol/L (98-107); Estimated Glomerular Filt Rate > 60 mL/min (>60); Globulin 3.5 g/dL (1.7-4.1); Glucose 105 mg/dL (70-100); HEMOLYSIS < 15 (0-50); Lipase 183 U/L (23-300); Sodium 140 mmol/L (137-145); Total Protein 7.7 g/dL (6.3-8.2)
[2023-05-08] MEDS: PANTOPRAZOLE 40 MG VIAL IV (21:38)
[2023-05-08] MEDS: ONDANSETRON 4 MG/2 ML INJ IV (21:38)
[2023-05-08 23:44] VITALS: PULSE 71
[2023-05-08 23:45] VITALS: BP 139/90; PULSE 71; RESP 19; O2SAT 98
[2023-05-09] VITALS (29 sets, daily range): BP systolic 99–161; BP diastolic 56–101; PULSE 71–109; RESP 14–26; TEMP 36.2–36.7; O2SAT 95–100; BMI 38.7
[2023-05-09] MEDS: SODIUM CHLORIDE 0.9% 1,000 ML 1000 ML IV (00:17)
--- NOTE | 2023-05-09 00:23 | ED.CHESTPAIN ---
HPI - Chest Pain <Latasha Hernandez MD - Last Filed: 05/19/23 03:39> General Chief Complaint: Chest Pain Stated Complaint: sternum pain, no known injury Time Seen by Provider: 05/08/23 20:36 Source: patient Mode of arrival: Ambulatory Limitations: no limitations Related Data Home Medications Medication Instructions Recorded Confirmed prenat.vits,virgen,[id number] 1 tab PO DAILY 05/24/22 05/09/23 Previous Rx's Medication Instructions Recorded breast pump #1 ea 09/27/22 Allergies Allergy/AdvReac Type Severity Reaction Status Date / Time No Known Drug Allergies Allergy Verified 01/30/23 14:01 <Nikhil Alcala MD - Last Filed: 05/09/23 17:55> History of Present Illness HPI narrative: Patient here for abdominal pain that started at 6:00 a.m.. Epigastric. Of recently has had postprandial abdominal pain. Variable foods with trigger it. No black or bloody stools. Pain does not radiate. Pain is sharp. Review of Systems <Nikhil Alcala MD - Last Filed: 05/09/23 17:55> Review of Systems Narrative: GENERAL: negative chills, fatigue, malaise, fever, sweats. HEENT: negative sinus pain, ear pain, sore throat RESPIRATORY: negative dyspnea, cough CARDIOVASCULAR: negative chest pain, palpitations GASTROINTESTINAL: Positive abdominal pain : negative dysuria, frequency, hematuria MUSCULOSKELETAL: negative muscle or bony pain SKIN: negative rash, skin lesions NEUROLOGIC: negative weakness, numbness ROS Unobtainable: All systems reviewed & are unremarkable except as noted in HPI and below Patient History <Latasha Hernandez MD - Last Filed: 05/19/23 03:39> Medical History Anxiety (~2020) Ankle pain (~2019) Chlamydia (~2018) Depression (~2020) Ankle fracture, right (~2019) Surgical History Anesthesia [place] teeth extracted (~05/2020) History of ankle surgery (~11/2019) Family History Mother Diabetes mellitus Hyperlipidemia Depression Hypertension Sister Ovarian cyst Depression Anxiety Father Family estrangement Grandmother Hypertension Hyperlipidemia Mental health problem Social History marital status: number of children: 0 household members: spouse and family lives independently: Yes caregiver/support person: No housing: apartment pets and animals: Yes (dogs) education level: high school 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) current occupational exposures/hazards: No special cassy needs: No travel history: over 6 months ago seatbelt use: always helmet use: No water heater temp set < 120 deg: No working smoke detector in home: Yes fire extinguisher in home: Yes carbon monox detector in home: Yes firearms in home: Yes firearms unloaded and locked: Yes do you feel safe at home: Yes Smoking Status: Former smoker Tobacco: How many years used: 3 second hand exposure: No alcohol intake: former substance use type: does not use during the past year weight has: increased > 10 lbs well-balanced diet: rarely or never daily servings fruits/ve-1 caffeine: Yes (aware of 200mg limit) Type(s) of exercise: none Smoking Status: Former smoker alcohol intake frequency: holidays/special occasions only Substance Use Type: does not use Exam <Latasha Hernandez MD - Last Filed: 05/19/23 03:39> Initial Vital Signs Initial Vital Signs: Vital Signs Temperature 98.4 F 05/08/23 20:28 Pulse Rate 84 05/08/23 20:28 Respiratory Rate 18 05/08/23 20:28 Blood Pressure 127/91 H 05/08/23 20:28 Pulse Oximetry 97 05/08/23 20:28 Oxygen Delivery Method Room Air 05/08/23 20:28 <Nikhil Alcala MD - Last Filed: 05/09/23 17:55> Narrative Exam Narrative: GENERAL: in no distress, not toxic not dyspneic HEAD: Normocephalic. EYES: Pupils equal round ENT: Mucous membranes moist. NECK: Trachea midline. CARDIOVASCULAR: Regular rate and rhythm RESPIRATORY: Clear to auscultation. Breath sounds equal bilaterally. No wheezes, rales, or rhonchi. GASTROINTESTINAL: Abdomen soft, reproducible mild epigastric tenderness, bowel sounds are present. No peritoneal signs. EXTREMITIES: No gross deformities. BACK: No flank tenderness. NEURO: AOx4. SKIN: Warm and dry PSYCH: Not anxious, is cooperative Initial Vital Signs Initial Vital Signs: Vital Signs Temperature 98.4 F 05/08/23 20:28 Pulse Rate 84 05/08/23 20:28 Respiratory Rate 18 05/08/23 20:28 Blood Pressure 127/91 H 05/08/23 20:28 Pulse Oximetry 97 05/08/23 20:28 Oxygen Delivery Method Room Air 05/08/23 20:28 Course <Latasha Hernandez MD - Last Filed: 05/19/23 03:39> Orders Ordered: Discontinued Medications Acetaminophen (Acetaminophen 325 Mg Tablet) 650 mg PO Q6H PRN PRN Reason: Fever/Mild Pain (1-3) Last Admin: 05/12/23 06:18 Dose: 650 mg Documented By: Admin: 05/11/23 23:05 Dose: 650 mg Documented By: Admin: 05/09/23 20:48 Dose: 650 mg Documented By: MORGAN Acetaminophen (Acetaminophen 325 Mg Tablet) 975 mg PO NOW PRN PRN Reason: Pain, Moderate (4-6) Hydrocodone Bitart/Acetaminophen (Hydrocodone/Acet 5/325 Tablet) 1 tab PO Q4H PRN PRN Reason: Pain, Moderate (4-6) Last Admin: 05/12/23 00:21 Dose: 1 tab Documented By: Admin: 05/11/23 20:13 Dose: 1 tab Documented By: Admin: 05/11/23 16:26 Dose: 1 tab Documented By: HEATHER Bupivacaine HCl (Bupivacaine 0.25% (Pf) Vial) 30 ml INJ NOW ONE Stop: 05/11/23 12:28 Last Admin: 05/11/23 12:27 Dose: 30 ml Documented By: LISA Docusate Sodium (Docusate 100 Mg Capsule) 200 mg PO NOW ONE Stop: 05/09/23 20:21 Last Admin: 05/09/23 20:42 Dose: 200 mg Documented By: MORGAN Hydromorphone HCl (Hydromorphone 0.5 Mg Inj) 0.5 mg IV Q15MIN PRN PRN Reason: Pain, Hydromorphone HCl (Hydromorphone 1 Mg Inj) 1 mg IV NOW ONE Stop: 05/09/23 00:32 Last Admin: 05/09/23 00:35 Dose: 1 mg Documented By: FEDE Hydromorphone HCl (Hydromorphone 0.5 Mg Inj) 0.5 mg IV Q2H PRN PRN Reason: Pain, Severe (7-10) Last Admin: 05/12/23 06:19 Dose: 0.5 mg Documented By: Admin: 05/12/23 01:56 Dose: 0.5 mg Documented By: Admin: 05/11/23 23:04 Dose: 0.5 mg Documented By: Admin: 05/11/23 14:48 Dose: 0.5 mg Documented By: HEATHER Hydromorphone HCl (Hydromorphone 1 Mg Inj) 0 mg IV Q5MIN PRN PRN Reason: Pain, Mild (1-3) Hydromorphone HCl (Hydromorphone 1 Mg Inj) 0 mg IV Q5MIN PRN PRN Reason: Pain, Moderate (4-6) Sodium Chloride (Normal Saline 0.9%) 1,000 mls @ 1,000 mls/hr IV BOLUS ONE Stop: 05/08/23 21:35 Last Infusion: 05/09/23 01:30 Dose: Infused Documented By: Admin: 05/09/23 00:17 Dose: 1,000 mls/hr Documented By: FEDE Sodium Chloride (Normal Saline 0.9%) 1,000 mls @ 150 mls/hr IV CONT LYN Last Infusion: 05/09/23 09:30 Dose: Infused Documented By: Admin: 05/09/23 02:34 Dose: 150 mls/hr Documented By: FEDE Lactated Ringer's (Lactated Ringers) 1,000 mls @ 100 mls/hr IV CONT LYN Last Admin: 05/11/23 08:02 Dose: 100 mls/hr Documented By: Infusion: 05/11/23 00:29 Dose: Infused Documented By: Admin: 05/10/23 14:29 Dose: 100 mls/hr Documented By: Infusion: 05/10/23 13:09 Dose: Infused Documented By: Admin: 05/10/23 03:09 Dose: 100 mls/hr Documented By: Infusion: 05/10/23 02:58 Dose: Infused Documented By: Infusion: 05/09/23 17:35 Dose: 100 mls/hr Documented By: Admin: 05/09/23 16:58 Dose: 100 mls/hr Documented By: LUCIAN Lactated Ringer's (Lactated Ringers) 1,000 mls @ 42 mls/hr IV CONT LYN Last Admin: 05/12/23 01:03 Dose: 42 mls/hr Documented By: Infusion: 05/12/23 01:03 Dose: Infused Documented By: Infusion: 05/11/23 13:58 Dose: 42 mls/hr Documented By: Admin: 05/11/23 11:39 Dose: 42 mls/hr Documented By: HF Piperacillin Sod/Tazobactam (Sod 3.375 gm/ Sodium Chloride) 100 mls @ 25 mls/hr IV INTRA-OP ONE Stop: 05/11/23 11:59 Last Admin: 05/11/23 15:14 Dose: Not Given Documented By: MM Piperacillin Sod/Tazobactam (Sod 3.375 gm/ Sodium Chloride) 100 mls @ 25 mls/hr IV NOW ONE Stop: 05/11/23 12:27 Last Infusion: 05/11/23 13:00 Dose: Infused Documented By: Admin: 05/11/23 12:17 Dose: 25 mls/hr Documented By: Acetaminophen (Ofirmev) 1,000 mg in 100 mls @ 400 mls/hr IV NOW ONE Stop: 05/11/23 13:17 Last Infusion: 05/11/23 13:04 Dose: Infused Documented By: Admin: 05/11/23 13:00 Dose: 400 mls/hr Documented By: Ibuprofen (Ibuprofen 600 Mg Tablet) 600 mg PO Q6H PRN PRN Reason: Fever/Mild Pain (1-3) Last Admin: 05/12/23 06:18 Dose: 600 mg Documented By: Admin: 05/11/23 23:06 Dose: 600 mg Documented By: Admin: 05/10/23 23:12 Dose: 600 mg Documented By: Admin: 05/09/23 18:01 Dose: 600 mg Documented By: YAJAIRA Iopamidol (Iopamidol 30 Ml Vial) 30 ml INJ NOW ONE Stop: 05/11/23 12:29 Last Admin: 05/11/23 13:22 Dose: 30 ml Documented By: Admin: 05/11/23 13:06 Dose: 60 ml Documented By: Admin: 05/11/23 12:28 Dose: 30 ml Documented By: LISA Lorazepam (Lorazepam 2 Mg/Ml Inj) 0.25 mg IV NOW PRN PRN Reason: Anxiety Morphine Sulfate (Morphine 2 Mg/Ml Inj) 2 mg IV Q4HR PRN PRN Reason: Pain, Moderate (4-6) Last Admin: 05/12/23 13:05 Dose: 2 mg Documented By: Admin: 05/12/23 09:50 Dose: 2 mg Documented By: Admin: 05/10/23 03:12 Dose: 2 mg Documented By: CRYSTAL Naloxone HCl (Naloxone 0.4 Mg/Ml Vial) 0.2 mg IV Q2MIN PRN PRN Reason: Opiate Reversal Ondansetron HCl (Ondansetron 4 Mg/2 Ml Inj) 4 mg IV NOW ONE Stop: 05/08/23 20:37 Last Admin: 05/08/23 21:38 Dose: 4 mg Documented By: QING Ondansetron HCl (Ondansetron 4 Mg/2 Ml Inj) 4 mg IV Q4HR PRN PRN Reason: Nausea And Vomiting Last Admin: 05/11/23 14:55 Dose: 4 mg Documented By: HEATHER Ondansetron HCl (Ondansetron 4 Mg/2 Ml Inj) 4 mg IV Q8HR PRN PRN Reason: Nausea And Vomiting Ondansetron HCl (Ondansetron 4 Mg/2 Ml Inj) 4 mg IV NOW PRN PRN Reason: Nausea And Vomiting Oxycodone HCl (Oxycodone Ir 5 Mg Tablet) 5 mg PO PACUNOW PRN PRN Reason: Mild or moderate pain Oxycodone HCl (Oxycodone Ir 5 Mg Tablet) 5 mg PO Q4HR PRN PRN Reason: Pain, Moderate (4-6) Last Admin: 05/12/23 20:32 Dose: 5 mg Documented By: Admin: 05/12/23 16:26 Dose: 5 mg Documented By: HEATHER Pantoprazole Sodium (Pantoprazole 40 Mg Vial) 40 mg IV NOW ONE Stop: 05/08/23 20:37 Last Admin: 05/08/23 21:38 Dose: 40 mg Documented By: QING Scopolamine (Scopolamine 1 Patch) 1 patch TOP NOW ONE Stop: 05/11/23 10:56 Last Admin: 05/11/23 11:38 Dose: 1 patch Documented By: LULY Vital Signs Vital signs: Vital Signs - 8 hr 05/09/23 10:36 05/09/23 10:37 05/09/23 10:37 Pulse Rate 97 H Blood Pressure 111/64 Pulse Oximetry 98 98 Oxygen Delivery Method Room Air 05/09/23 11:00 05/09/23 11:30 05/09/23 12:00 Pulse Rate 81 79 86 Blood Pressure Pulse Oximetry 97 97 97 Oxygen Delivery Method Room Air Room Air 05/09/23 12:30 05/09/23 13:00 05/09/23 13:30 Pulse Rate 84 76 71 Blood Pressure Pulse Oximetry 97 98 99 Oxygen Delivery Method Room Air Room Air 05/09/23 14:00 05/09/23 14:48 Pulse Rate 76 88 Blood Pressure Pulse Oximetry 99 96 Oxygen Delivery Method Room Air Room Air <Nikhil Alcala MD - Last Filed: 05/09/23 17:55> Course Course Narrative: May 09, 2023 7:00 a.m..Fredrick: ?sign out from Dr Hernandez [facility] pending. Pain is controlled. General surgery has been consulted Orders Ordered: Discontinued Medications Acetaminophen (Acetaminophen 325 Mg Tablet) 650 mg PO Q6H PRN PRN Reason: Fever/Mild Pain (1-3) Last Admin: 05/12/23 06:18 Dose: 650 mg Documented By: Admin: 05/11/23 23:05 Dose: 650 mg Documented By: Admin: 05/09/23 20:48 Dose: 650 mg Documented By: MORGAN Acetaminophen (Acetaminophen 325 Mg Tablet) 975 mg PO NOW PRN PRN Reason: Pain, Moderate (4-6) Hydrocodone Bitart/Acetaminophen (Hydrocodone/Acet 5/325 Tablet) 1 tab PO Q4H PRN PRN Reason: Pain, Moderate (4-6) Last Admin: 05/12/23 00:21 Dose: 1 tab Documented By: Admin: 05/11/23 20:13 Dose: 1 tab Documented By: Admin: 05/11/23 16:26 Dose: 1 tab Documented By: MM Bupivacaine HCl (Bupivacaine 0.25% (Pf) Vial) 30 ml INJ NOW ONE Stop: 05/11/23 12:28 Last Admin: 05/11/23 12:27 Dose: 30 ml Documented By: LISA Docusate Sodium (Docusate 100 Mg Capsule) 200 mg PO NOW ONE Stop: 05/09/23 20:21 Last Admin: 05/09/23 20:42 Dose: 200 mg Documented By: MORGAN Hydromorphone HCl (Hydromorphone 0.5 Mg Inj) 0.5 mg IV Q15MIN PRN PRN Reason: Pain, Hydromorphone HCl (Hydromorphone 1 Mg Inj) 1 mg IV NOW ONE Stop: 05/09/23 00:32 Last Admin: 05/09/23 00:35 Dose: 1 mg Documented By: FEDE Hydromorphone HCl (Hydromorphone 0.5 Mg Inj) 0.5 mg IV Q2H PRN PRN Reason: Pain, Severe (7-10) Last Admin: 05/12/23 06:19 Dose: 0.5 mg Documented By: Admin: 05/12/23 01:56 Dose: 0.5 mg Documented By: Admin: 05/11/23 23:04 Dose: 0.5 mg Documented By: Admin: 05/11/23 14:48 Dose: 0.5 mg Documented By: HEATHER Hydromorphone HCl (Hydromorphone 1 Mg Inj) 0 mg IV Q5MIN PRN PRN Reason: Pain, Mild (1-3) Hydromorphone HCl (Hydromorphone 1 Mg Inj) 0 mg IV Q5MIN PRN PRN Reason: Pain, Moderate (4-6) Sodium Chloride (Normal Saline 0.9%) 1,000 mls @ 1,000 mls/hr IV BOLUS ONE Stop: 05/08/23 21:35 Last Infusion: 05/09/23 01:30 Dose: Infused Documented By: Admin: 05/09/23 00:17 Dose: 1,000 mls/hr Documented By: FEDE Sodium Chloride (Normal Saline 0.9%) 1,000 mls @ 150 mls/hr IV CONT LYN Last Infusion: 05/09/23 09:30 Dose: Infused Documented By: Admin: 05/09/23 02:34 Dose: 150 mls/hr Documented By: FEDE Lactated Ringer's (Lactated Ringers) 1,000 mls @ 100 mls/hr IV CONT LYN Last Admin: 05/11/23 08:02 Dose: 100 mls/hr Documented By: Infusion: 05/11/23 00:29 Dose: Infused Documented By: Admin: 05/10/23 14:29 Dose: 100 mls/hr Documented By: Infusion: 05/10/23 13:09 Dose: Infused Documented By: Admin: 05/10/23 03:09 Dose: 100 mls/hr Documented By: Infusion: 05/10/23 02:58 Dose: Infused Documented By: Infusion: 05/09/23 17:35 Dose: 100 mls/hr Documented By: Admin: 05/09/23 16:58 Dose: 100 mls/hr Documented By: SPF Lactated Ringer's (Lactated Ringers) 1,000 mls @ 42 mls/hr IV CONT LYN Last Admin: 05/12/23 01:03 Dose: 42 mls/hr Documented By: Infusion: 05/12/23 01:03 Dose: Infused Documented By: Infusion: 05/11/23 13:58 Dose: 42 mls/hr Documented By: Admin: 05/11/23 11:39 Dose: 42 mls/hr Documented By: LULY Piperacillin Sod/Tazobactam (Sod 3.375 gm/ Sodium Chloride) 100 mls @ 25 mls/hr IV INTRA-OP ONE Stop: 05/11/23 11:59 Last Admin: 05/11/23 15:14 Dose: Not Given Documented By: HEATHER Piperacillin Sod/Tazobactam (Sod 3.375 gm/ Sodium Chloride) 100 mls @ 25 mls/hr IV NOW ONE Stop: 05/11/23 12:27 Last Infusion: 05/11/23 13:00 Dose: Infused Documented By: Admin: 05/11/23 12:17 Dose: 25 mls/hr Documented By: Acetaminophen (Ofirmev) 1,000 mg in 100 mls @ 400 mls/hr IV NOW ONE Stop: 05/11/23 13:17 Last Infusion: 05/11/23 13:04 Dose: Infused Documented By: Admin: 05/11/23 13:00 Dose: 400 mls/hr Documented By: AB Ibuprofen (Ibuprofen 600 Mg Tablet) 600 mg PO Q6H PRN PRN Reason: Fever/Mild Pain (1-3) Last Admin: 05/12/23 06:18 Dose: 600 mg Documented By: Admin: 05/11/23 23:06 Dose: 600 mg Documented By: Admin: 05/10/23 23:12 Dose: 600 mg Documented By: Admin: 05/09/23 18:01 Dose: 600 mg Documented By: YAJAIRA Iopamidol (Iopamidol 30 Ml Vial) 30 ml INJ NOW ONE Stop: 05/11/23 12:29 Last Admin: 05/11/23 13:22 Dose: 30 ml Documented By: Admin: 05/11/23 13:06 Dose: 60 ml Documented By: Admin: 05/11/23 12:28 Dose: 30 ml Documented By: LISA Lorazepam (Lorazepam 2 Mg/Ml Inj) 0.25 mg IV NOW PRN PRN Reason: Anxiety Morphine Sulfate (Morphine 2 Mg/Ml Inj) 2 mg IV Q4HR PRN PRN Reason: Pain, Moderate (4-6) Last Admin: 05/12/23 13:05 Dose: 2 mg Documented By: Admin: 05/12/23 09:50 Dose: 2 mg Documented By: Admin: 05/10/23 03:12 Dose: 2 mg Documented By: CRYSTAL Naloxone HCl (Naloxone 0.4 Mg/Ml Vial) 0.2 mg IV Q2MIN PRN PRN Reason: Opiate Reversal Ondansetron HCl (Ondansetron 4 Mg/2 Ml Inj) 4 mg IV NOW ONE Stop: 05/08/23 20:37 Last Admin: 05/08/23 21:38 Dose: 4 mg Documented By: QING Ondansetron HCl (Ondansetron 4 Mg/2 Ml Inj) 4 mg IV Q4HR PRN PRN Reason: Nausea And Vomiting Last Admin: 05/11/23 14:55 Dose: 4 mg Documented By: HEATHER Ondansetron HCl (Ondansetron 4 Mg/2 Ml Inj) 4 mg IV Q8HR PRN PRN Reason: Nausea And Vomiting Ondansetron HCl (Ondansetron 4 Mg/2 Ml Inj) 4 mg IV NOW PRN PRN Reason: Nausea And Vomiting Oxycodone HCl (Oxycodone Ir 5 Mg Tablet) 5 mg PO PACUNOW PRN PRN Reason: Mild or moderate pain Oxycodone HCl (Oxycodone Ir 5 Mg Tablet) 5 mg PO Q4HR PRN PRN Reason: Pain, Moderate (4-6) Last Admin: 05/12/23 20:32 Dose: 5 mg Documented By: Admin: 05/12/23 16:26 Dose: 5 mg Documented By: HEATHER Pantoprazole Sodium (Pantoprazole 40 Mg Vial) 40 mg IV NOW ONE Stop: 05/08/23 20:37 Last Admin: 05/08/23 21:38 Dose: 40 mg Documented By: QING Scopolamine (Scopolamine 1 Patch) 1 patch TOP NOW ONE Stop: 05/11/23 10:56 Last Admin: 05/11/23 11:38 Dose: 1 patch Documented By: HF Vital Signs Vital signs: Vital Signs - 8 hr 05/09/23 10:36 05/09/23 10:37 05/09/23 10:37 Pulse Rate 97 H Blood Pressure 111/64 Pulse Oximetry 98 98 Oxygen Delivery Method Room Air 05/09/23 11:00 05/09/23 11:30 05/09/23 12:00 Pulse Rate 81 79 86 Blood Pressure Pulse Oximetry 97 97 97 Oxygen Delivery Method Room Air Room Air 05/09/23 12:30 05/09/23 13:00 05/09/23 13:30 Pulse Rate 84 76 71 Blood Pressure Pulse Oximetry 97 98 99 Oxygen Delivery Method Room Air Room Air 05/09/23 14:00 05/09/23 14:48 Pulse Rate 76 88 Blood Pressure Pulse Oximetry 99 96 Oxygen Delivery Method Room Air Room Air MDM - Chest Pain <Latasah Hernandez MD - Last Filed: 05/19/23 03:39> Lab Data 05/10/23 04:50 05/12/23 03:40 Labs: Lab Results 05/08/23 05/09/23 05/09/23 Range/Units 21:10 06:15 14:00 WBC 6.7 6.3 (4.5-11.0) X10^3/uL RBC 4.70 4.24 (4.0-5.2) X10^6/uL Hgb 13.4 12.0 (12.0-16.0) g/dL Hct 40.5 36.7 (36-46) % MCV 86.3 86.6 (80-100) fL MCH 28.5 28.3 (26-34) PG MCHC 33.0 32.7 (30-36) % RDW 14.9 H 14.7 (11.6-14.8) % Plt Count 201 175 (150-400) X10^3/uL Neut % (Auto) 67.6 51.8 (50-75) % Lymph % (Auto) 23.0 L 38.1 (25-40) % [place] % (Auto) 7.6 6.4 (3-14) % Eos % (Auto) 1.3 L 3.1 (2-4) % Baso % (Auto) 0.5 0.6 (0-2) % Neut # (Auto) 4500 3200 (1539-7969) /uL Lymph # (Auto) 1500 2400 (0723-1622) /uL [place] # (Auto) 500 400 (0-900) /uL Eos # (Auto) 100 200 (0-450) /uL Baso # (Auto) 0 0 (0-100) /uL Sodium 140 141 139 (137-145) mmol/L Potassium 4.0 4.0 4.1 (3.4-5.1) mmol/L Chloride 105 108 H 110 H (98-107) mmol/L Carbon Dioxide 31 30 26 (22-32) mmol/L BUN 11 8 7 (7-17) mg/dL Creatinine 0.55 0.55 0.51 L (0.52-1.04) mg/dL Estimated GFR > 60 > 60 > 60 (>60) mL/min BUN/Creatinine Ratio 20.0 14.5 13.7 (6-22) Glucose 105 H 99 87 (70-100) mg/dL Calcium 10.0 8.4 8.5 (8.4-10.2) mg/dL Total Bilirubin 1.9 H 1.9 H 1.0 (0.2-1.3) mg/dL AST 611 H 535 H 396 H (14-36) IU/L ALT 566 H 576 H 562 H (<35) IU/L Alkaline Phosphatase 116 114 139 H (38-126) U/L Total Protein 7.7 6.6 7.0 (6.3-8.2) g/dL Albumin 4.2 3.5 3.8 (3.5-5.0) g/dL Globulin 3.5 3.1 3.2 (1.7-4.1) g/dL Albumin/Globulin Ratio 1.2 1.1 1.2 (1.0-2.8) Lipase 183 (23-300) U/L Urine Test (Negative) 05/10/23 05/10/23 05/11/23 Range/Units 04:50 11:40 04:55 WBC 6.4 (4.5-11.0) X10^3/uL RBC 4.30 (4.0-5.2) X10^6/uL Hgb 12.4 (12.0-16.0) g/dL Hct 37.6 (36-46) % MCV 87.4 (80-100) fL MCH 28.8 (26-34) PG MCHC 32.9 (30-36) % RDW 15.5 H (11.6-14.8) % Plt Count 172 (150-400) X10^3/uL Neut % (Auto) 59.4 (50-75) % Lymph % (Auto) 26.6 (25-40) % [place] % (Auto) 9.0 (3-14) % Eos % (Auto) 4.5 H (2-4) % Baso % (Auto) 0.5 (0-2) % Neut # (Auto) 3800 (3387-5136) /uL Lymph # (Auto) 1700 (7333-6118) /uL [place] # (Auto) 600 (0-900) /uL Eos # (Auto) 300 (0-450) /uL Baso # (Auto) 0 (0-100) /uL Sodium 141 138 (137-145) mmol/L Potassium 4.0 3.7 (3.4-5.1) mmol/L Chloride 108 H 108 H (98-107) mmol/L Carbon Dioxide 27 27 (22-32) mmol/L BUN 5 L 4 L (7-17) mg/dL Creatinine 0.51 L 0.47 L (0.52-1.04) mg/dL Estimated GFR > 60 > 60 (>60) mL/min BUN/Creatinine Ratio 9.8 8.5 (6-22) Glucose 98 85 (70-100) mg/dL Calcium 8.7 8.9 (8.4-10.2) mg/dL Total Bilirubin 2.3 H 2.4 H (0.2-1.3) mg/dL AST 386 H 194 H (14-36) IU/L ALT 575 H 458 H (<35) IU/L Alkaline Phosphatase 160 H 151 H (38-126) U/L Total Protein 6.8 6.6 (6.3-8.2) g/dL Albumin 3.6 3.4 L (3.5-5.0) g/dL Globulin 3.2 3.2 (1.7-4.1) g/dL Albumin/Globulin Ratio 1.1 1.1 (1.0-2.8) Lipase (23-300) U/L Urine Test Negative (Negative) Imaging Data US - abdomen: Radiologist's Impression: PROCEDURE: US ABDOMEN LIMITED INDICATIONS: RUQ ? gallstone TECHNIQUE: Real-time scanning was performed of the abdominal and retroperitoneal organs, with image documentation. COMPARISON: None. FINDINGS: Liver: Liver is normal in size . Mildly increased liver parenchymal echotexture is seen. No discrete hepatic lesion. Gallbladder: Multiple stones are seen in dependent portion of gallbladder lumen. No gallbladder wall thickening or pericholecystic fluid. No sonographic Jones's sign. Biliary ducts: Intrahepatic bile ducts are non-dilated. Extrahepatic bile duct caliber measures 6.9 mm. Normal is 6-7 mm or less in diameter, or 10 mm or less post-cholecystectomy. Pancreas: Visualized portions of the pancreas are sonographically normal. Miscellaneous: No free abdominal fluid. IMPRESSION: 1. Cholelithiasis without sonographic evidence of acute cholecystitis. No biliary ductal dilatation. 2. Mild hepatic steatosis. No discrete hepatic lesion. Dictated by: Austen Hoffman M.D. on 05/08/2023 at 22:19 MDM Narrative Medical decision making narrative: CC: Complicating co-morbidities: Data collected from: patient Social determinants of health that may influence the patients condition: Medical records reviewed: Differential considered: Exam documented above, pertinent findings include: Lab Test results independently reviewed as above. Pertinent findings: CBC is unremarkable Chemistries are notable for a bilirubin at 1.9 AST is 611, AST at 566, alk-phos is within normal limits. Renal function and electrolytes are unremarkable Lipase is not elevated Independently reviewed EKG: Imaging studies independently reviewed: Ultrasound shows multiple stones in the dependent portion of the gallbladder lumen. No pericholecystic fluid to suggest acute cholecystitis. Intrahepatic ducts are not dilated. Extrahepatic ducts are not dilated. Consultations: Treatments: Re-evaluations: Discussion: <Nikhil Alcala MD - Last Filed: 05/09/23 17:55> Lab Data Labs: Lab Results 05/08/23 05/09/23 05/09/23 Range/Units 21:10 06:15 14:00 WBC 6.7 6.3 (4.5-11.0) X10^3/uL RBC 4.70 4.24 (4.0-5.2) X10^6/uL Hgb 13.4 12.0 (12.0-16.0) g/dL Hct 40.5 36.7 (36-46) % MCV 86.3 86.6 (80-100) fL MCH 28.5 28.3 (26-34) PG MCHC 33.0 32.7 (30-36) % RDW 14.9 H 14.7 (11.6-14.8) % Plt Count 201 175 (150-400) X10^3/uL Neut % (Auto) 67.6 51.8 (50-75) % Lymph % (Auto) 23.0 L 38.1 (25-40) % [place] % (Auto) 7.6 6.4 (3-14) % Eos % (Auto) 1.3 L 3.1 (2-4) % Baso % (Auto) 0.5 0.6 (0-2) % Neut # (Auto) 4500 3200 (3425-2484) /uL Lymph # (Auto) 1500 2400 (3264-9771) /uL [place] # (Auto) 500 400 (0-900) /uL Eos # (Auto) 100 200 (0-450) /uL Baso # (Auto) 0 0 (0-100) /uL Sodium 140 141 139 (137-145) mmol/L Potassium 4.0 4.0 4.1 (3.4-5.1) mmol/L Chloride 105 108 H 110 H (98-107) mmol/L Carbon Dioxide 31 30 26 (22-32) mmol/L BUN 11 8 7 (7-17) mg/dL Creatinine 0.55 0.55 0.51 L (0.52-1.04) mg/dL Estimated GFR > 60 > 60 > 60 (>60) mL/min BUN/Creatinine Ratio 20.0 14.5 13.7 (6-22) Glucose 105 H 99 87 (70-100) mg/dL Calcium 10.0 8.4 8.5 (8.4-10.2) mg/dL Total Bilirubin 1.9 H 1.9 H 1.0 (0.2-1.3) mg/dL AST 611 H 535 H 396 H (14-36) IU/L ALT 566 H 576 H 562 H (<35) IU/L Alkaline Phosphatase 116 114 139 H (38-126) U/L Total Protein 7.7 6.6 7.0 (6.3-8.2) g/dL Albumin 4.2 3.5 3.8 (3.5-5.0) g/dL Globulin 3.5 3.1 3.2 (1.7-4.1) g/dL Albumin/Globulin Ratio 1.2 1.1 1.2 (1.0-2.8) Lipase 183 (23-300) U/L Urine Test (Negative) 05/10/23 05/10/23 05/11/23 Range/Units 04:50 11:40 04:55 WBC 6.4 (4.5-11.0) X10^3/uL RBC 4.30 (4.0-5.2) X10^6/uL Hgb 12.4 (12.0-16.0) g/dL Hct 37.6 (36-46) % MCV 87.4 (80-100) fL MCH 28.8 (26-34) PG MCHC 32.9 (30-36) % RDW 15.5 H (11.6-14.8) % Plt Count 172 (150-400) X10^3/uL Neut % (Auto) 59.4 (50-75) % Lymph % (Auto) 26.6 (25-40) % [place] % (Auto) 9.0 (3-14) % Eos % (Auto) 4.5 H (2-4) % Baso % (Auto) 0.5 (0-2) % Neut # (Auto) 3800 (6852-4954) /uL Lymph # (Auto) 1700 (0569-4950) /uL [place] # (Auto) 600 (0-900) /uL Eos # (Auto) 300 (0-450) /uL Baso # (Auto) 0 (0-100) /uL Sodium 141 138 (137-145) mmol/L Potassium 4.0 3.7 (3.4-5.1) mmol/L Chloride 108 H 108 H (98-107) mmol/L Carbon Dioxide 27 27 (22-32) mmol/L BUN 5 L 4 L (7-17) mg/dL Creatinine 0.51 L 0.47 L (0.52-1.04) mg/dL Estimated GFR > 60 > 60 (>60) mL/min BUN/Creatinine Ratio 9.8 8.5 (6-22) Glucose 98 85 (70-100) mg/dL Calcium 8.7 8.9 (8.4-10.2) mg/dL Total Bilirubin 2.3 H 2.4 H (0.2-1.3) mg/dL AST 386 H 194 H (14-36) IU/L ALT 575 H 458 H (<35) IU/L Alkaline Phosphatase 160 H 151 H (38-126) U/L Total Protein 6.8 6.6 (6.3-8.2) g/dL Albumin 3.6 3.4 L (3.5-5.0) g/dL Globulin 3.2 3.2 (1.7-4.1) g/dL Albumin/Globulin Ratio 1.1 1.1 (1.0-2.8) Lipase (23-300) U/L Urine Test Negative (Negative) Imaging Data MRCP: Radiologist's Impression: [address] [address] Magnetic Resonance Report Signed Patient: Erica Mcghee MR#: [id number] : 2000 Acct:[id number] Age/Sex: 23 / F Date of Service: 05/09/23 Loc: ED Accession Number: [id number] Procedure: MR abdomen wo/w con Ordering Provider: Latasha Hernandez MD PROCEDURE: MR ABDOMEN WO/W CON INDICATIONS: + Gallstones and increased LFTs. ? CBD stone TECHNIQUE: Coronal HASTE, axial 2D FLASH in- and vpb-mb-hymtm; axial breath-hold T2 FSE. Dynamic axial VIBE during the administration of contrast; post-contrast coronal VIBE or 2D FLASH with fat saturation from the hepatic dome to the iliac crests. Optional diffusion weighted imaging and ADC may be performed. COMPARISON: [facility], , US ABDOMEN LIMITED, 05/08/2023, 21:16. FINDINGS: Image quality: Diagnostic Lower chest: Unremarkable. Lung bases not well evaluated on this study. Liver: Utzu-ok-rhdinrby steatosis. No suspicious focal liver lesion. Gallbladder and biliary system: Cholelithiasis. Possible small filling defects are seen in the CBD (for example 08/18, and . The CBD is borderline distended at 6 mm. Pancreas: No ductal dilation. Normal parenchyma on MRI. Spleen: Nonenlarged Adrenals: No discrete nodules Kidneys: No solid mass or hydronephrosis Vessels and lymph nodes: Prominent upper abdominal lymph nodes may be reactive in the setting of possible liver disease. These are nonspecific. No enlarged lymph nodes by size criteria. No abdominal aortic aneurysm. Bowel and peritoneum: No evidence of pathologic ascites or small bowel obstruction. Body wall: Unremarkable Pelvis: Not imaged on this study Bones: No acute or suspicious osseous finding. IMPRESSION: Cholelithiasis. Possible small CBD filling defects representing choledocholithiasis. The CBD is borderline distended at 6 mm. Ggnw-xg-fiqzafyz hepatic steatosis. Other findings as above. Dictated by: Ender Carlisle M.D. on 05/09/2023 at 10:41 Approved by: Ender Carlisle M.D. on 05/09/2023 at 10:45 MDM Narrative Medical decision making narrative: Patient here for abdominal pain that started at 6:00 a.m.. Epigastric. Of recently has had postprandial abdominal pain. Variable foods with trigger it. No black or bloody stools. Pain does not radiate. Pain is sharp. CC: Abdominal pain Complicating co-morbidities: None Data collected from: patient Social determinants of health that may influence the patients condition: None Differential considered: Cholelithiasis cholecystitis gastritis acid reflux bowel obstruction Exam documented above, pertinent findings include: Epigastric tenderness Lab Test results independently reviewed as above. Pertinent findings: CBC is unremarkable Chemistries are notable for a bilirubin at 1.9 AST is 611, AST at 566, alk-phos is within normal limits. Renal function and electrolytes are unremarkable Lipase is not elevated 3:30 p.m.. Repeat CMP liver enzymes have improved Imaging studies independently reviewed: Ultrasound shows multiple stones in the dependent portion of the gallbladder lumen. No pericholecystic fluid to suggest acute cholecystitis. Intrahepatic ducts are not dilated. Extrahepatic ducts are not dilated. MRCP shows Cholelithiasis. Possible small CBD filling defects representing choledocholithiasis. The CBD is borderline distended at 6 mm. Consultations: General surgery Dr. Camilo, need MRCP May 09, 2023 at 11:45 a.m.. Spoke with general surgery Dr. Gee, recommends transferring patient for ERCP. 11:55 a.m.. Spoke with gastroenterology with [facility], Dr Hager, they could do ERCP tomorrow if admitted to hospitalist 12:24 p.m.. Spoke with gastroenterology with [facility], dr nieto, he will follow in consult, admit to hospitalist 1:02 p.m.. Spoke with [address] hospitalist, dr hurley, she will accept patient when bed available 1:30 p.m.. Spoke with Alison lloyd bologna lacer Dr. Real, she has reviewed MRCP as well as her radiologist, no stones were seen. Recommends cholecystectomy with IOC, recommends repeat laboratory studies now and then contact Dr. Gee again 3:[address] Gee, general surgeon here, he is reviewed MRI and laboratory studies again. He does agree patient prior could stay here for cholecystectomy and IOC. For procedural likely be tomorrow. However possible tonight still. Keep patient NPO 4:10 p.m.. Spoke with gastroenterology with [address], Dr. Nieto, he would be happy to continue following if ERCP is needed tomorrow after the surgery here. Treatments: See note Re-evaluations: 11:50 a.m.. Spoke with patient and she does understand need for transfer for ERCP. Pain is controlled. 3:45 p.m.. Patient is pleased that she will stay here. She remains pain-free. Discussion: Appropriate for transfer for ERCP. We do not have this service here. Pain is controlled. Not toxic. No antibiotics indicated at this time. No cholecystitis Addendum. Appropriate for admission. MRCP was reviewed by another radiologist and gastroenterology service. As well as Dr. Gee. Patient will be admitted here. Discharge Plan Departure Patient Disposition: Admitted as Observation Clinical Impression: Abdominal pain Qualifiers: Abdominal location: unspecified location Qualified Code(s): R10.9 - Unspecified abdominal pain Admit Date/Time: 05/11/23 16:30 Admit Provider: Marquez Gee
[2023-05-09] MEDS: HYDROMORPHONE 1 MG INJ IV (00:35)
[2023-05-09] MEDS: SODIUM CHLORIDE 0.9% 1,000 ML 150 ML IV (02:34)
--- NOTE | 2023-05-09 03:05 | DI.MRI.S_ITS ---
PROCEDURE: MR ABDOMEN WO/W CON INDICATIONS: + Gallstones and increased LFTs. ? CBD stone TECHNIQUE: Coronal HASTE, axial 2D FLASH in- and seo-sq-kshla; axial breath-hold T2 FSE. Dynamic axial VIBE during the administration of contrast; post-contrast coronal VIBE or 2D FLASH with fat saturation from the hepatic dome to the iliac crests. Optional diffusion weighted imaging and ADC may be performed. COMPARISON: [facility], , US ABDOMEN LIMITED, 05/08/2023, 21:16. FINDINGS: Image quality: Diagnostic Lower chest: Unremarkable. Lung bases not well evaluated on this study. Liver: Ksbj-rt-jicmsjgi steatosis. No suspicious focal liver lesion. Gallbladder and biliary system: Cholelithiasis. Possible small filling defects are seen in the CBD (for example 08/18, and . The CBD is borderline distended at 6 mm. Pancreas: No ductal dilation. Normal parenchyma on MRI. Spleen: Nonenlarged Adrenals: No discrete nodules Kidneys: No solid mass or hydronephrosis Vessels and lymph nodes: Prominent upper abdominal lymph nodes may be reactive in the setting of possible liver disease. These are nonspecific. No enlarged lymph nodes by size criteria. No abdominal aortic aneurysm. Bowel and peritoneum: No evidence of pathologic ascites or small bowel obstruction. Body wall: Unremarkable Pelvis: Not imaged on this study Bones: No acute or suspicious osseous finding. IMPRESSION: Cholelithiasis. Possible small CBD filling defects representing choledocholithiasis. The CBD is borderline distended at 6 mm. Pxav-si-jkqcbrlk hepatic steatosis. Other findings as above. Dictated by: Ender Carlisle M.D. on 05/09/2023 at 10:41 Approved by: Ender Carlisle M.D. on 05/09/2023 at 10:45
[2023-05-09 06:28] LABS: Add Manual Diff / Slide Review NO; Basophils Absolute Auto 0 /uL (0-100); Basophils Percent Auto 0.6 % (0-2); Eosinophils Absolute Auto 200 /uL (0-450); Eosinophils Percent Auto 3.1 % (2-4); Hematocrit 36.7 % (36-46); Lymphocytes Absolute Auto 2400 /uL (1100-4500); Lymphocytes Percent Auto 38.1 % (25-40); Mean Corpuscular HGB Conc 32.7 % (30-36); Mean Corpuscular Hemoglobin 28.3 PG (26-34); Mean Corpuscular Volume 86.6 fL (80-100); Monocytes Absolute Auto 400 /uL (0-900); Monocytes Percent Auto 6.4 % (3-14); Neutrophils Absolute Auto 3200 /uL (1500-7000); Neutrophils Percent Auto 51.8 % (50-75); Platelet Count 175 X10^3/uL (150-400); Red Blood Cell Count 4.24 X10^6/uL (4.0-5.2); Red Cell Distribution Width 14.7 % (11.6-14.8); White Blood Cell Count 6.3 X10^3/uL (4.5-11.0)
[2023-05-09 06:39] LABS: Alanine Aminotransferase 576 IU/L (<35); Albumin 3.5 g/dL (3.5-5.0); Albumin Globulin Ratio 1.1 (1.0-2.8); Alkaline Phosphatase 114 U/L (38-126); Aspartate Aminotransferase 535 IU/L (14-36); BUN Creatinine Ratio 14.5 (6-22); Bilirubin Total 1.9 mg/dL (0.2-1.3); Blood Urea Nitrogen 8 mg/dL (7-17); Calcium 8.4 mg/dL (8.4-10.2); Carbon Dioxide 30 mmol/L (22-32); Chloride 108 mmol/L (98-107); Estimated Glomerular Filt Rate > 60 mL/min (>60); Globulin 3.1 g/dL (1.7-4.1); Glucose 99 mg/dL (70-100); HEMOLYSIS < 15 (0-50); Sodium 141 mmol/L (137-145); Total Protein 6.6 g/dL (6.3-8.2)
--- NOTE | 2023-05-09 12:04 | PC.NURSE ---
Addendum entered by Jaz Ayala CNA 05/09/23 13:49: 1253: [facility], spoke to Rhiannon, patient on wait list Original Note: Hospital call list for patient transfer 1144: [facility], spoke to Holly, called GI Dr. Yadira Hager, patient is on wait list 1148: [facility], spoke to Khushboo, patient on wait list called back at 1202 to state that decline due to being a capacity 1153: [facility], spoke to Odalys, patient on wait list
[2023-05-09 14:19] LABS: Alanine Aminotransferase 562 IU/L (<35); Albumin 3.8 g/dL (3.5-5.0); Albumin Globulin Ratio 1.2 (1.0-2.8); Alkaline Phosphatase 139 U/L (38-126); Aspartate Aminotransferase 396 IU/L (14-36); BUN Creatinine Ratio 13.7 (6-22); Blood Urea Nitrogen 7 mg/dL (7-17); Calcium 8.5 mg/dL (8.4-10.2); Carbon Dioxide 26 mmol/L (22-32); Chloride 110 mmol/L (98-107); Estimated Glomerular Filt Rate > 60 mL/min (>60); Globulin 3.2 g/dL (1.7-4.1); Glucose 87 mg/dL (70-100); HEMOLYSIS < 15 (0-50); Potassium 4.1 mmol/L (3.4-5.1); Sodium 139 mmol/L (137-145)
--- NOTE | 2023-05-09 16:36 | PM.HP.1 ---
History of Present Illness History of Present Illness Date Patient Seen: 05/09/23 Time Patient Seen: 16:36 Chief complaint: sternum pain, no known injury Narrative: Erica Mcghee is a 23-year-old woman who presented to the emergency department last night complaining of epigastric abdominal pain. An ultrasound showed cholelithiasis. She had elevated liver enzymes and an MRCP was ordered which was suggestive but not definitive for choledocholithiasis. A consultation with Gastroenterology at [facility] regarding ERCP was performed and the engineering consultant reviewed the MRCP with their radiologist and determined that there was no evidence of choledocholithiasis. She feels better now. [facility] Medical History Anxiety (~2020) Ankle pain (~2019) Chlamydia (~2018) Depression (~2020) Ankle fracture, right (~2019) Surgical History Anesthesia [place] teeth extracted (~05/2020) History of ankle surgery (~11/2019) Family History Mother Diabetes mellitus Hyperlipidemia Depression Hypertension Sister Ovarian cyst Depression Anxiety Father Family estrangement Grandmother Hypertension Hyperlipidemia Mental health problem Social History marital status: number of children: 0 household members: spouse and family lives independently: Yes caregiver/support person: No housing: apartment pets and animals: Yes (dogs) education level: high school 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) current occupational exposures/hazards: No special cassy needs: No travel history: over 6 months ago seatbelt use: always helmet use: No water heater temp set < 120 deg: No working smoke detector in home: Yes fire extinguisher in home: Yes carbon monox detector in home: Yes firearms in home: Yes firearms unloaded and locked: Yes do you feel safe at home: Yes Smoking Status: Former smoker Tobacco: How many years used: 3 second hand exposure: No alcohol intake: former substance use type: does not use during the past year weight has: increased > 10 lbs well-balanced diet: rarely or never daily servings fruits/ve-1 caffeine: Yes (aware of 200mg limit) Type(s) of exercise: none Meds Home Medications and Allergies Home Medications Medication Instructions Recorded Confirmed Type prenat.vits,virgen,kck-oxrx-mlwry 1 tab PO DAILY 05/24/22 01/30/23 History breast pump #1 ea 09/27/22 01/30/23 Rx etonogestrel 0.12 mg-ethinyl 1 vag ring vaginal Q4W #3 ea 01/30/23 01/30/23 Rx estradiol 0.015 mg/24 hr vaginal ring Allergies Allergy/AdvReac Type Severity Reaction Status Date / Time No Known Drug Allergies Allergy Verified 01/30/23 14:01 Exam Vital Signs (past 8 hours): - 05/09/23 09:00 05/09/23 09:00 05/09/23 09:30 Pulse Rate 78 80 Respiratory Rate 14 Blood Pressure 102/57 L Pulse Oximetry 95 97 Oxygen Delivery Method Room Air 05/09/23 10:36 05/09/23 10:37 05/09/23 10:37 Pulse Rate 97 H Respiratory Rate Blood Pressure 111/64 Pulse Oximetry 98 98 Oxygen Delivery Method Room Air 05/09/23 11:00 05/09/23 11:30 05/09/23 12:00 Pulse Rate 81 79 86 Respiratory Rate Blood Pressure Pulse Oximetry 97 97 97 Oxygen Delivery Method Room Air Room Air 05/09/23 12:30 05/09/23 13:00 05/09/23 13:30 Pulse Rate 84 76 71 Respiratory Rate Blood Pressure Pulse Oximetry 97 98 99 Oxygen Delivery Method Room Air Room Air 05/09/23 14:00 05/09/23 14:48 Pulse Rate 76 88 Respiratory Rate Blood Pressure Pulse Oximetry 99 96 Oxygen Delivery Method Room Air Room Air Oxygen Delivery Method Room Air Const General: No acute distress Resp Effort & Inspection: normal respiratory effort Neuro General: patient alert and patient awake Psych Attitude: cooperative Objective Labs 05/09/23 06:15 05/09/23 14:00 Labs: Laboratory Results - last 24 hr 05/08/23 05/09/23 05/09/23 21:10 06:15 14:00 WBC 6.7 6.3 RBC 4.70 4.24 Hgb 13.4 12.0 Hct 40.5 36.7 MCV 86.3 86.6 MCH 28.5 28.3 MCHC 33.0 32.7 RDW 14.9 H 14.7 Plt Count 201 175 Neut % (Auto) 67.6 51.8 Lymph % (Auto) 23.0 L 38.1 [place] % (Auto) 7.6 6.4 Eos % (Auto) 1.3 L 3.1 Baso % (Auto) 0.5 0.6 Neut # (Auto) 4500 3200 Lymph # (Auto) 1500 2400 [place] # (Auto) 500 400 Eos # (Auto) 100 200 Baso # (Auto) 0 0 Sodium 140 141 139 Potassium 4.0 4.0 4.1 Chloride 105 108 H 110 H Carbon Dioxide 31 30 26 BUN 11 8 7 Creatinine 0.55 0.55 0.51 L Estimated GFR > 60 > 60 > 60 BUN/Creatinine Ratio 20.0 14.5 13.7 Glucose 105 H 99 87 Calcium 10.0 8.4 8.5 Total Bilirubin 1.9 H 1.9 H 1.0 AST 611 H 535 H 396 H ALT 566 H 576 H 562 H Alkaline Phosphatase 116 114 139 H Total Protein 7.7 6.6 7.0 Albumin 4.2 3.5 3.8 Globulin 3.5 3.1 3.2 Albumin/Globulin Ratio 1.2 1.1 1.2 Lipase 183 Assessment & Plan Assessment and plan (1) Cholelithiasis: Qualifiers: Cholelithiasis location: gallbladder Cholecystitis presence: without cholecystitis Biliary obstruction: without biliary obstruction Qualified Code(s): K80.20 - Calculus of gallbladder without cholecystitis without obstruction Status: Acute Plan Recommend laparoscopic cholecystectomy with intraoperative cholangiogram. If common duct stones are found on cholangiogram she would need to go for an ERCP. Plan to proceed tomorrow.
[2023-05-09] MEDS: LACTATED RINGERS 1,000 ML 100 ML IV (16:58)
[2023-05-09] MEDS: IBUPROFEN 600 MG TABLET PO (18:01)
[2023-05-09] MEDS: DOCUSATE 100 MG CAPSULE 200 MG PO (20:42)
[2023-05-09] MEDS: ACETAMINOPHEN 325 MG TABLET 650 MG PO (20:48)
[2023-05-10] MEDS: LACTATED RINGERS 1,000 ML 100 ML IV ×2 (03:09→14:29)
[2023-05-10] MEDS: MORPHINE 2 MG/ML INJ IV (03:12)
[2023-05-10 04:00] VITALS: BP 103/69; PULSE 79; RESP 16; TEMP 36.5; O2SAT 96
[2023-05-10 05:11] LABS: Add Manual Diff / Slide Review NO; Basophils Absolute Auto 0 /uL (0-100); Basophils Percent Auto 0.5 % (0-2); Eosinophils Absolute Auto 300 /uL (0-450); Eosinophils Percent Auto 4.5 % (2-4); Hematocrit 37.6 % (36-46); Hemoglobin 12.4 g/dL (12.0-16.0); Lymphocytes Absolute Auto 1700 /uL (1100-4500); Lymphocytes Percent Auto 26.6 % (25-40); Mean Corpuscular HGB Conc 32.9 % (30-36); Mean Corpuscular Hemoglobin 28.8 PG (26-34); Mean Corpuscular Volume 87.4 fL (80-100); Monocytes Absolute Auto 600 /uL (0-900); Neutrophils Absolute Auto 3800 /uL (1500-7000); Neutrophils Percent Auto 59.4 % (50-75); Platelet Count 172 X10^3/uL (150-400); Red Cell Distribution Width 15.5 % (11.6-14.8); White Blood Cell Count 6.4 X10^3/uL (4.5-11.0)
[2023-05-10 05:24] LABS: Alanine Aminotransferase 575 IU/L (<35); Albumin 3.6 g/dL (3.5-5.0); Albumin Globulin Ratio 1.1 (1.0-2.8); Alkaline Phosphatase 160 U/L (38-126); Aspartate Aminotransferase 386 IU/L (14-36); BUN Creatinine Ratio 9.8 (6-22); Bilirubin Total 2.3 mg/dL (0.2-1.3); Blood Urea Nitrogen 5 mg/dL (7-17); Calcium 8.7 mg/dL (8.4-10.2); Carbon Dioxide 27 mmol/L (22-32); Chloride 108 mmol/L (98-107); Estimated Glomerular Filt Rate > 60 mL/min (>60); Globulin 3.2 g/dL (1.7-4.1); Glucose 98 mg/dL (70-100); HEMOLYSIS < 15 (0-50); Sodium 141 mmol/L (137-145); Total Protein 6.8 g/dL (6.3-8.2)
--- NOTE | 2023-05-10 12:05 | CM.DANOTE ---
Initial DCP Assessment Note Pt is a 23 yo female, resident of [place], presents with abd pain. Surgery consulted and patient now on the schedule this afternoon for Radu Tolentino. PCP: Chayo Brand Payer: Johanny Ramirez Reviewed chart, pt discussed in multidisciplinary rounds this morning. Surgery scheduled this afternoon, patient expected to discharge either today or tomorrow, home w/family to assist during recovery. No barriers identified at this time to patient's safe discharge home w/family to assist; close outpatient f/u recommended. CM team will plan to follow closely in case any DC needs or concerns arise. JEB Urias Discharge Planning/Care Management CM Discharge Assessment Start: 05/10/23 12:00 Freq: Status: Active Protocol: Document 05/10/23 12:00 TORY (Rec: 05/10/23 12:05 TORY [id number]) Discharge Planning Assessment Assigned Seaming Machine Operator JEB Stone DPOA/Assigned Designee Name Nikhil Mcghee, spouse Contact Information [phone] Advance Directives? No History Provided By Patient,Medical Record Household Members spouse,family Type of transporation used prior to Drives own vehicle admit Independent with ADL's Yes Is patient alert and oriented? Yes Barriers to Discharge No Comment Home w/family expected Discharge Plan Home Transportation Arrangement Family Referrals Initiated None needed
[2023-05-10 13:44] LABS: Pregnancy Test Urine Negative (Negative)
[2023-05-10 20:52] VITALS: BP 123/79; PULSE 84; RESP 18; TEMP 36.4; O2SAT 96
[2023-05-10] MEDS: IBUPROFEN 600 MG TABLET PO (23:12)
[2023-05-11] VITALS (13 sets, daily range): BP systolic 93–122; BP diastolic 50–73; PULSE 60–84; RESP 14–21; TEMP 35.8–36.7; O2SAT 93–98; BMI 39.6
--- NOTE | 2023-05-11 | DI.RAD.S_ITS ---
PROCEDURE: XR CHOLANGIOGRAM OPERATIVE INDICATIONS: INTRA OP LAP MARIA ANTONIA.. COMPARISON: [facility], MR, MR ABDOMEN WO/W CON, 05/09/2023, 10:00. [facility], US, US ABDOMEN LIMITED, 05/08/2023, 21:16. FINDINGS: Biliary ducts: The surgeon injected contrast into the biliary ducts after cannulation of the cystic duct stump. Visualized intra- and extrahepatic bile ducts are slightly prominent in caliber, without strictures. A small far distal intraluminal filling defect is seen suggestive of retained ductal stones or sludge. No evidence for iatrogenic ductal injury. Duodenum: Contrast was not seen to flow promptly through the sphincter of Oddi into the duodenum, which appears normal in caliber. IMPRESSION: Suspect far distal common duct calculus, also suspected from MR cholangiogram 2 days ago. The caliber of the bile ducts appears mildly prominent, and free spillage of contrast through the sphincter of OD into the duodenal lumen was not identified, a secondary finding that can be produced by a distal common bile duct calculus but also by edema or spasm at the sphincter of Oddi. Dictated by: Amadeo Rodriguez M.D. on 05/11/2023 at 16:51 Approved by: Aamdeo Rodriguez M.D. on 05/11/2023 at 16:57
--- NOTE | 2023-05-11 | PATH_ITS ---
[facility] Accession Number: [id number] No. of containers..01 Tissue . 01 Material submitted: . gallbladder - GALLBLADDER . 01 Diagnosis: GALLBLADDER: Chronic cholecystitis, cholelithiasis, and cholesterolosis. Negative for dysplasia and malignancy. MNT 05/15/20231510 Local . 01 Electronically signed: . Kathrine Tarango MD, Pathologist NPI- [id number] . 01 Gross description: . The specimen is received in formalin labeled with the patient's name, , and gallbladder, and consists of an intact gallbladder measuring 6.3 x 2.9 x 1.7 cm with an unremarkable external surface. The cystic duct margin is inked blue, and no pericystic lymph node is identified. The lumen contains multiple yellow bosselated calculi measuring up to 0.7 cm in greatest dimension grossly obstructing the cystic duct and admixed with a small amount of green mucoid bile. The mucosa is green and velvety with numerous yellow areas of discoloration, and no polyps or lesions identified. The dumont average 0.3 cm thick and union representative sections to include the cystic duct margin and full thickness sections are submitted in cassette A1. ([id number]) /YANET 05/15/20231510 Local . 01 Pathologist provided ICD-10: K80.11 . 01 CPT . 638652 Specimen Comment: A courtesy copy of this report has been sent to [phone] Performed at: 01 [facility] [address] [place] [address] [address] [facility], [place], [place] [id number] MD Martín Nieves MD Phone: [phone]
[2023-05-11 06:05] LABS: Alanine Aminotransferase 458 IU/L (<35); Albumin 3.4 g/dL (3.5-5.0); Albumin Globulin Ratio 1.1 (1.0-2.8); Alkaline Phosphatase 151 U/L (38-126); Aspartate Aminotransferase 194 IU/L (14-36); BUN Creatinine Ratio 8.5 (6-22); Bilirubin Total 2.4 mg/dL (0.2-1.3); Blood Urea Nitrogen 4 mg/dL (7-17); Calcium 8.9 mg/dL (8.4-10.2); Carbon Dioxide 27 mmol/L (22-32); Chloride 108 mmol/L (98-107); Estimated Glomerular Filt Rate > 60 mL/min (>60); Globulin 3.2 g/dL (1.7-4.1); Glucose 85 mg/dL (70-100); HEMOLYSIS < 15 (0-50); Potassium 3.7 mmol/L (3.4-5.1); Sodium 138 mmol/L (137-145); Total Protein 6.6 g/dL (6.3-8.2)
[2023-05-11] MEDS: LACTATED RINGERS 1,000 ML 100 ML IV (08:02)
[2023-05-11] MEDS: SCOPOLAMINE 1 PATCH TOP (11:38)
[2023-05-11] MEDS: LACTATED RINGERS 1,000 ML 42 ML IV (11:39)
--- NOTE | 2023-05-11 11:55 | PM.CALLCOV.1 ---
Call Coverage Note Note Date of Patient Contact: 05/11/23 Time of Patient Contact: 11:55 Narrative of Care Provided: 23-year-old woman admitted with choledocholithiasis. MRI demonstrates likely small stone within the common bile duct total bilirubin today remains elevated at 2.4 with mild transaminitis. Discussed proceeding with laparoscopic cholecystectomy with cholangiogram if unable to relieve the biliary obstruction she will require transfer for ERCP. Overview of the operation discussed. Operative risks including hemorrhage, infection, damage to surrounding structures discussed. Her questions have been answered and she is in agreement with this plan. She provides her written and verbal consent to proceed.
[2023-05-11] MEDS: PIPERACILLIN/TAZO 3.375 GM in SODIUM CHLORIDE 0.9% 100 ML IV (12:17)
--- NOTE | 2023-05-11 12:21 | SUR.OPER ---
Supine on padded OR bed, head on pillow, right arm secured on padded arm board at <90 degrees abduction, left arm secured, padded and tucked by side legs uncrossed, footboard in place, safety belt at thigh, tape over blanket over lower legs.
[2023-05-11] MEDS: BUPIVACAINE 0.25% (PF) VIAL 30 ML INJ (12:27)
[2023-05-11] MEDS: iopamidoL 30 ML VIAL INJ ×3 (12:28→13:22)
[2023-05-11] MEDS: ACETAMINOPHEN IV 1,000 MG/100 ML VIAL 400 MG IV (13:00)
--- NOTE | 2023-05-11 13:54 | P.OP_ITS ---
Operative Date/Time/Diagnoses Date of procedure: 05/11/23 Time of procedure: 13:54 Pre-op diagnosis: Choledocholithiasis Post-op diagnosis: same Procedure & Clinicians Procedure: Laparoscopic cholecystectomy Intraoperative cholangiogram Same procedure as scheduled: Yes Indications: 23-year-old woman who presented with choledocholithiasis taken to the operating room for laparoscopic cholecystectomy. Surgeon: Carlos New Click Yes if Unassisted: Yes Anesthesia Type: General Operative Notes Findings: Critical view of safety established Intra operative cholangiogram demonstrates normal hepatic filling however there is no flow of contrast to the distal common bile duct or filling of the intestine consistent with choledocholithiasis. Specimen(s): other (Gallbladder) Estimated Blood Loss (mL): 50 Procedure in detail: The patient was placed supine on the table and bilateral lower extremity com pression devices were applied. Anesthesia was induced they were intubated with an endotracheal tube and received 2g of Ancef. A time-out was performed. They were prepped and draped in sterile fashion. An infraumbilical incision was made. The fascia was elevated incised and the abdomen was entered atraumatically. A blunt tip 12mm balloon trocar was then inserted, pneumoperitoneum was established and inspection of the abdomen demonstrated no evidence of injury. They were placed head up and right side up and then a 11 mm port was placed high in the epigastrium and two 5mm in the right upper quadrant. The gallbladder was tensely distended and it was percutaneously drained of facilitate its manipulation. The gallbladder was grasped by the fundus and retracted over the liver and retracted laterally by the infundibulum. Using electrocautery the lateral plane between the gallbladder and the liver was opened towards the fundus. The gallbladder was then retracted laterally and the medial plane was developed in the same manner. With the gallbladder mobilized the bottom of the cystic plate was visualized. The hepatocystic triangle was meticulosly skeletonized with blunt dissection of fat and fibrous tissue from both the front and the back. Only two structures were then clearly seen entering the gallbladder the cystic duct and the cystic artery. With the critical view of safety established a raeann on the cystic duct was made and then the cholangiogram catheter was inserted. We flushed the cystic duct copiously with saline which returned numerous fragments of small stone debris. The cholangiogram was performed and this demonstrated normal hepatic filling normal proximal common bile duct but no distal flow into the duodenum consistent with choledocholithiasis. The cystic duct was clipped twice using the 10 mm Weck hemoclip applied under direct visualization. The cystic artery was divided in the same fashion. The gallbladder was removed from the liver bed using electro cautery. The liver bed was then inspected for hemostasis and this was achieved. The abdomen was irrigated with sterile saline and inspection was made that showed the clips in good position. The specimen was removed using Endo-Catch. The abdomen was desufflated. The umbilical fascia was closed with 0 Vicryl in a wnvwnp-ul-jtond fashion under direct visualization. Skin incisions were irr igated and closed with 4-0 Monocryl. 30 ml of 0.25% bupivacaine was infiltrated into the subcutaneous tissue of the incisions. The wounds were sealed with Dermabond. Patient emerged from anesthesia was extubated and transferred to recovery in stable condition. The sponge and instrument count at the end of the operation was correct. Complications: none Post-operative Condition: stable Plan for aftercare: Requires ERCP for choledocholithiasis
[2023-05-11] MEDS: HYDROMORPHONE 0.5 MG INJ IV ×2 (14:48→23:04)
[2023-05-11] MEDS: ONDANSETRON 4 MG/2 ML INJ IV (14:55)
[2023-05-11] MEDS: HYDROCODONE/ACET 5/325 TABLET 1 TAB PO ×2 (16:26→20:13)
--- NOTE | 2023-05-11 18:49 | PM.CALLCOV.1 ---
Call Coverage Note Note Date of Patient Contact: 05/11/23 Time of Patient Contact: 18:49 Narrative of Care Provided: 23F choledocholithiasis. Laparoscopic cholecystectomy today with intraoperative cholangiogram demonstrates persistent choledocholithiasis. Transfer has been arranged to [place] for ERCP 05/11. -regular diet -NPO after midnight
[2023-05-11] MEDS: ACETAMINOPHEN 325 MG TABLET 650 MG PO (23:05)
[2023-05-11] MEDS: IBUPROFEN 600 MG TABLET PO (23:06)
[2023-05-12] MEDS: HYDROCODONE/ACET 5/325 TABLET 1 TAB PO (00:21)
[2023-05-12 00:30] VITALS: BP 109/63; PULSE 73; RESP 16; TEMP 36.7; O2SAT 98
[2023-05-12] MEDS: LACTATED RINGERS 1,000 ML 42 ML IV (01:03)
[2023-05-12] MEDS: HYDROMORPHONE 0.5 MG INJ IV ×2 (01:56→06:19)
[2023-05-12 04:18] LABS: Alanine Aminotransferase 513 IU/L (<35); Albumin 3.6 g/dL (3.5-5.0); Albumin Globulin Ratio 1.1 (1.0-2.8); Alkaline Phosphatase 153 U/L (38-126); Aspartate Aminotransferase 282 IU/L (14-36); BUN Creatinine Ratio 7.7 (6-22); Blood Urea Nitrogen 4 mg/dL (7-17); Carbon Dioxide 27 mmol/L (22-32); Chloride 108 mmol/L (98-107); Estimated Glomerular Filt Rate > 60 mL/min (>60); Globulin 3.3 g/dL (1.7-4.1); Glucose 104 mg/dL (70-100); HEMOLYSIS < 15 (0-50); Sodium 138 mmol/L (137-145); Total Protein 6.9 g/dL (6.3-8.2)
[2023-05-12 04:26] VITALS: BP 119/68; PULSE 103; RESP 16; TEMP 36.4; O2SAT 96
[2023-05-12] MEDS: ACETAMINOPHEN 325 MG TABLET 650 MG PO (06:18)
[2023-05-12] MEDS: IBUPROFEN 600 MG TABLET PO (06:18)
[2023-05-12 08:00] VITALS: BP 108/68; PULSE 96; RESP 16; TEMP 36.7; O2SAT 97
--- NOTE | 2023-05-12 09:35 | CM.DPNOTE ---
DCP Note [facility] [employer] reviewed EMR. Per surgeon note/RN, pt scheduled to transfer to [facility] 05/12/23 for Requires ERCP for choledocholithiasis. Per previous CM notes, anticipated no CM needs. Plan: anticipate transfer to [facility] tomorrow. No CM needs. CM team will follow as needed. JEB Dooley
[2023-05-12] MEDS: MORPHINE 2 MG/ML INJ IV ×2 (09:50→13:05)
--- NOTE | 2023-05-12 13:47 | PM.PN.1 ---
Subjective Subjective Date Patient Seen: 05/12/23 Time Patient Seen: 13:47 Interval history: No complaints today Awaiting transfer for ERCP Exam Vital Signs (past 8 hours): - 05/12/23 08:00 Temperature 98.1 F Pulse Rate 96 H Respiratory Rate 16 Blood Pressure 108/68 Pulse Oximetry 97 Oxygen Flow Rate 0 Oxygen Delivery Method Room Air Oxygen Flow Rate 0 Const General: No acute distress Objective Labs 05/10/23 04:50 05/12/23 03:40 Labs: Laboratory Results - last 24 hr 05/12/23 03:40 Sodium 138 Potassium 4.0 Chloride 108 H Carbon Dioxide 27 BUN 4 L Creatinine 0.52 Estimated GFR > 60 BUN/Creatinine Ratio 7.7 Glucose 104 H Calcium 9.0 Total Bilirubin 3.0 H AST 282 H ALT 513 H Alkaline Phosphatase 153 H Total Protein 6.9 Albumin 3.6 Globulin 3.3 Albumin/Globulin Ratio 1.1 PFSH Medical History Anxiety (~2020) Ankle pain (~2019) Chlamydia (~2018) Depression (~2020) Ankle fracture, right (~2019) Surgical History Anesthesia [place] teeth extracted (~05/2020) History of ankle surgery (~11/2019) Family History Mother Diabetes mellitus Hyperlipidemia Depression Hypertension Sister Ovarian cyst Depression Anxiety Father Family estrangement Grandmother Hypertension Hyperlipidemia Mental health problem Social History marital status: number of children: 0 household members: spouse and family lives independently: Yes caregiver/support person: No housing: apartment pets and animals: Yes (dogs) education level: high school 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) current occupational exposures/hazards: No special cassy needs: No travel history: over 6 months ago seatbelt use: always helmet use: No water heater temp set < 120 deg: No working smoke detector in home: Yes fire extinguisher in home: Yes carbon monox detector in home: Yes firearms in home: Yes firearms unloaded and locked: Yes do you feel safe at home: Yes Smoking Status: Former smoker Tobacco: How many years used: 3 second hand exposure: No alcohol intake: former substance use type: does not use during the past year weight has: increased > 10 lbs well-balanced diet: rarely or never daily servings fruits/ve-1 caffeine: Yes (aware of 200mg limit) Type(s) of exercise: none Assessment & Plan Assessment and plan (1) Choledocholithiasis: Status: Acute Plan Transfer for ERCP when bed available
[2023-05-12 16:00] VITALS: BP 103/66; PULSE 80; RESP 16; O2SAT 97
[2023-05-12] MEDS: OXYCODONE IR 5 MG TABLET PO ×2 (16:26→20:32)
[2023-05-12 20:02] VITALS: BP 115/83; PULSE 85; RESP 18; TEMP 36.2; O2SAT 96
--- NOTE | 2023-05-12 21:14 | P.DS_ITS ---
History of Present Illness History of Present Illness Chief complaint: sternum pain, no known injury Narrative: Erica Mcghee is a 23-year-old woman who presented to the emergency department last night complaining of epigastric abdominal pain. An ultrasound showed cholelithiasis. She had elevated liver enzymes and an MRCP was ordered which was suggestive but not definitive for choledocholithiasis. A consultation with Gastroenterology at [facility] regarding ERCP was performed and the terry cloth cutter hand reviewed the MRCP with their radiologist and determined that there was no evidence of choledocholithiasis. She feels better now. Discharge Providers Provider Date of admission: 05/11/23 16:30 Discharge Date: 05/12/23 Primary care physician: NIURKA Dinh Discharge provider: Marquez Gee MD Summary Hospital Course Discharge Diagnosis: choledocholithiasis Hospital Course: The patient was admitted for cholelithiasis. Initially an MRCP was performed because of elevated liver enzymes. The radiologist suspected choledocholithiasis and arrangements were made to transfer to for ERCP however upon reviewing the imaging they did not believe the MRCP showed common duct stones. She then went to the OR with Dr. New for a laparoscopic cholecystectomy with cholangiogram on 05/11/23. No contrast flowed into the duodenum on cholangiogram so she was transferred for an ERCP to [place]. Exam Vital Signs (past 8 hours): - 05/12/23 16:00 05/12/23 20:02 Temperature 97.1 F L Pulse Rate 80 85 Respiratory Rate 16 18 Blood Pressure 103/66 115/83 Pulse Oximetry 97 96 Oxygen Flow Rate 0 0 Oxygen Delivery Method Room Air Oxygen Flow Rate 0 Objective Labs 05/10/23 04:50 05/12/23 03:40 Labs: Laboratory Results - last 24 hr 05/12/23 03:40 Sodium 138 Potassium 4.0 Chloride 108 H Carbon Dioxide 27 BUN 4 L Creatinine 0.52 Estimated GFR > 60 BUN/Creatinine Ratio 7.7 Glucose 104 H Calcium 9.0 Total Bilirubin 3.0 H AST 282 H ALT 513 H Alkaline Phosphatase 153 H Total Protein 6.9 Albumin 3.6 Globulin 3.3 Albumin/Globulin Ratio 1.1 [facility] Medical History Anxiety (~2020) Ankle pain (~2019) Chlamydia (~2018) Depression (~2020) Ankle fracture, right (~2019) Surgical History Anesthesia [place] teeth extracted (~05/2020) History of ankle surgery (~11/2019) Family History Mother Diabetes mellitus Hyperlipidemia Depression Hypertension Sister Ovarian cyst Depression Anxiety Father Family estrangement Grandmother Hypertension Hyperlipidemia Mental health problem Social History marital status: number of children: 0 household members: spouse and family lives independently: Yes caregiver/support person: No housing: apartment pets and animals: Yes (dogs) education level: high school 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) current occupational exposures/hazards: No special cassy needs: No travel history: over 6 months ago seatbelt use: always helmet use: No water heater temp set < 120 deg: No working smoke detector in home: Yes fire extinguisher in home: Yes carbon monox detector in home: Yes firearms in home: Yes firearms unloaded and locked: Yes do you feel safe at home: Yes Smoking Status: Former smoker Tobacco: How many years used: 3 second hand exposure: No alcohol intake: former substance use type: does not use during the past year weight has: increased > 10 lbs well-balanced diet: rarely or never daily servings fruits/ve-1 caffeine: Yes (aware of 200mg limit) Type(s) of exercise: none Discharge Plan Discharge Plan Patient Disposition: [facility] Other facility: [facility] Discharge Data Primary Care Provider: Chayo Brand
--- NOTE | 2023-05-12 22:37 | PC.NURSE ---
Patient discharged at 21:20 to [place] via BLS transport. Report called to SANIA Ruiz at 21:25. All items removed from room. Patient alert and oriented and in stable condition upon discharge.
== END 2023-05-12 21:20 | disposition short-term general hospital (02) | DRG 419 ==
LOC: ED 05-09 11:46 → AC 05-09 15:34
PROVIDERS: Emergency Medicine; Surgery; Admitting Provider Surgery; Emergency Provider Emergency Medicine; PCP Nurse Practitioner; Referring Provider Emergency Medicine; Visit Provider Surgery
PROC: 0FT44ZZ Resection of Gallbladder, Percutaneous Endoscopic Approach (ICD-10-PCS; CPT 47562; principal; 2023-05-11 11:30)
DX: K80.20 Calculus of gallbladder without cholecystitis without obstruction (principal); Z87.891 Personal history of nicotine dependence
CPT/HCPCS: 36415; 47563; 74183; 74300; 76705; 80053; 81025; 83690; 85025; 96374; 96375; 99222; 99284; 99285; G0378; C9113; J0136; J1100; J1170; J2250; J2270; J2405; J2543; J2704; J3010; Q9967